=== PATIENT | female | born 1940 | race Caucasian/White ===

== ENCOUNTER 2016-04-21 17:46 | Inpatient (IN) | payer OTHER, BC ==
--- NOTE | 2016-04-21 18:03 | CPEKG ---
Heart Rate: 75 RR Interval: 800 P-R Interval: 202 QRSD Interval: 190 QT Interval: 460 QTC Interval: 514 P [place]: 0 QRS [place]: -78 T Wave [place]: 91 EKG Severity - ABNORMAL ECG - EKG Impression: VENTRICULAR-PACED RHYTHM Electronically Signed By: Ceci Neal 21-Apr-2016 21:18:01
[2016-04-21 18:53] LABS: ANION GAP 10 mEq/L (8-16); CALCIUM 8.9 mg/dL (8.5-10.4); CARBON DIOXIDE 28 mEq/l (22-31); CHLORIDE 87 mEq/L (97-110); CREATININE 0.8 mg/dL (0.6-1.0); GLOMERULAR FILTRATION RATE > 60; GLUCOSE 97 mg/dL (70-100); POTASSIUM 4.2 mEq/L (3.5-5.2); SODIUM 125 mEq/L (134-144)
--- NOTE | 2016-04-21 18:56 | EDPHY ---
H & P Time Seen by Provider: 04/21/16 18:00 HPI/ROS: CHIEF COMPLAINT: Ankle swelling HISTORY OF PRESENT ILLNESS: This is a 75-year-old female referred to the emergency department by her physicians are office, where she was seen yesterday. [place] [address] and a sodium of 120. Because of these laboratory results she was contacted today and advised come to the emergency department. She denies chest pain, shortness of breath, PND, TOMPKINS. She has had persistent lower extremity edema (for at least 2 weeks) and was given a prescription for diuretic yesterday; which she has not filled or taken. She does report fatigue. REVIEW OF SYSTEMS: A ten point review of systems was performed and is negative with the exception of the items mentioned in the HPI. Past Medical/Surgical History: 1. Hypertension 2. Sick sinus syndrome status post pacemaker placement 3. Peripheral neuropathy 4. Recent I & D of knee abscess (January 2016) 5. Lower extremity cellulitis (requiring IV antibiotics in January of 2016) 6. Hip surgery Social History: She lives independently. 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 She does not use tobacco products. She drinks alcohol socially. She is accompanied by her 2 daughters today. Smoking Status: Former smoker Physical Exam: General Appearance: Alert. Vital signs reviewed. Blood pressure 160/132. Heart rate 78, respiratory rate 15, oxygen saturation 96% on room air. Temperature 36.7. Eyes: Pupils equal and round, no conjunctival injection, no discharge. Anicteric. ENT, Mouth: Mucous membranes are moist, no oropharyngeal erythema or edema. Neck: No lymphadenopathy, supple. No jugular venous distention. Respiratory: Lungs with distant breath sounds; no wheezes, rales, or rhonchi. Cardiovascular: Regular rate and rhythm; no murmur, rub, or gallop. Gastrointestinal: Abdomen is soft and nontender, no masses or organomegaly, bowel sounds normal. Skin: Warm and dry, no rashes on exposed skin, normal color. Back: Nontender to palpation over the thoracolumbar spine. No CVAT. Extremities: Bilateral 3+ pitting lower extremity edema to the knees. Bandages on both heels. Neurological: Alert and oriented. Moving all four extremities easily and equally. Psychiatric: Normal affect. Constitutional: Initial Vital Signs Temperature (C) 36.7 C 04/21/16 17:48 Blood Pressure 160/132 H 04/21/16 17:48 O2 Delivery Mode Room Air Allergies/Adverse Reactions: morphine [Morphine] Allergy (Mild, Verified 02/12/16 14:36) VOMITTING Home Medications: Medication Instructions Recorded DULoxetine [Cymbalta 30 MG (*)] 30 mg PO HS 04/01/15 Diazepam [Valium 5 MG (*)] 5 mg PO HS PRN 04/01/15 Irbesartan [Avapro 300 mg] 300 mg PO DAILY 04/01/15 Ferrous Sulfate [Ferrous Sulf 325 325 mg PO DAILY #0 tab 04/05/15 MG (*)] Gabapentin [Neurontin 300 MG (*)] 300 mg PO Q8 02/12/16 Furosemide [Furosemide] 20 mg PO DAILY 04/21/16 Metoprolol Tartrate [Metoprolol 50 mg PO BID 04/21/16 Tartrate] Multivitamins [Multivitamin (*)] 1 each PO DAILY 04/21/16 Potassium Cl [Klor-Con] 10 meq PO DAILY 04/21/16 Vit A/Vit C/Vit E/Zinc/Copper 1 each PO DAILY 04/21/16 [Preservision Areds Softgel] Medical Decision Making - Diagnostics EKG Interpretation: 12 lead EKG is interpreted in Trace master View by emergency department physician. Paced rhythm. Imaging: Two-view chest x-ray reviewed by me in PACs. It shows cardiomegaly and signs of congestive heart failure. ED Course/Re-evaluation: Basic metabolic panel being repeated to reassess sodium. Repeat sodium is 125. Troponin is normal. Chest x-ray shows signs of congestive heart failure. Yesterday's BNP was over 9000. These findings in conjunction with her lower extremity edema support a diagnosis of congestive heart failure. She did not start the diuretic that was prescribed yesterday. She is not having chest pain or shortness of breath tonight. She is hypertensive with a blood pressure 160/110. She is reportedly compliant with her antihypertensives. New onset CHF. She was given Lasix in the emergency department. I have spoken with Dr. Ayleen Montana of Cardiology and the Cardiology service will see this patient in the morning. Her urine also looks as if she has a urinary tract infection. Culture has been sent. She was given 1 dose of Keflex 500 mg orally in the department. She is not febrile or ill-appearing. She does not meet SIRS criteria. Differential Diagnosis: I considered a differential diagnosis including but not limited to pulmonary infectious process, pulmonary embolus, acute coronary syndrome, and congestive heart failure. - Data Points Laboratory Results: Laboratory Results 04/21/16 18:20 04/21/16 04/21/16 18:32 18:20 Sodium 125 L mEq/L (134-144) Potassium 4.2 mEq/L (3.5-5.2) Chloride 87 L mEq/L (97-110) Carbon Dioxide 28 mEq/l (22-31) Anion Gap 10 mEq/L (8-16) BUN 17 mg/dL (7-23) Creatinine 0.8 mg/dL (0.6-1.0) Estimated GFR > 60 Glucose 97 mg/dL (70-100) Calcium 8.9 mg/dL (8.5-10.4) Troponin I < 0.012 ng/mL (0-0.034) Urine Color YELLOW Urine Appearance MODERATELY TURBID Urine pH 6.0 (5.0-7.5) Ur Specific [place] 1.005 (1.002-1.030) Urine Protein 1+ H (NEGATIVE) Urine Ketones NEGATIVE (NEGATIVE) Urine Blood 3+ H (NEGATIVE) Urine Nitrate NEGATIVE (NEGATIVE) Urine Bilirubin NEGATIVE (NEGATIVE) Urine Urobilinogen NEGATIVE EU (0.2-1.0) Ur Leukocyte Esterase 3+ H (NEGATIVE) Urine RBC 25-50 H /hpf (0-3) Urine WBC 50-182 H /hpf (0-3) Ur Epithelial Cells TRACE /lpf (NONE-1+) Urine Bacteria 3+ H /hpf (NONE SEEN) Ur Culture Indicated? INDICATED H (NI) Urine Glucose NEGATIVE (NEGATIVE) Medications Given: Discontinued Medications Furosemide (Lasix Injection) 20 mg IVP EDNOW ONE Stop: 04/21/16 20:02 Last Admin: 04/21/16 20:11 Dose: 20 mg Departure - Departure Disposition: [facility] Clinical Impression: Hyponatremia Congestive heart failure Qualifiers: Qualifier Code: (I50.9) Heart failure, unspecified Condition: Good
[2016-04-21 18:57] LABS: COLOR YELLOW; LEUKOCYTE ESTERASE,URINE 3+ (NEGATIVE); NITRITE,URINE NEGATIVE (NEGATIVE)
[2016-04-21 19:05] LABS: TROPONIN I < 0.012 ng/mL (0-0.034)
[2016-04-21 19:07] LABS: BACTERIA 3+ /hpf (NONE SEEN); RBC,URINE 25-50 /hpf (0-3); WBC,URINE 50-182 /hpf (0-3)
--- NOTE | 2016-04-21 19:20 | DX ---
AP Upright and Lateral Chest History: Chest pain in a 75-year-old female; comparison prior study April 01, 2015. Findings: The heart is enlarged and there is pulmonary venous hypertension. Small bilateral pleural e ffusions are seen. Basilar opacities are consistent with atelectasis. The bipolar pacer is in stable position. Degenerative changes are noted in the spine. An element of COPD is suspected based on sherman ening of the hemidiaphragms. Rods and pedicle screws are seen in the lumbar spine. There is a compression fracture of L1 which wa s noted on the lumbar spine study July 03, 2015. Impression: 1. Congestive heart failure. 2. See above report for additional findings.
[2016-04-21] MEDS ORDERED: ACETAMINOPHEN 325 MG TAB PO PRN (19:40)
[2016-04-21] MEDS ORDERED: FUROSEMIDE 20 MG/2 ML VIAL IVP ONE (20:01)
[2016-04-21] MEDS ORDERED: FUROSEMIDE 20 MG/2 ML VIAL ONE (20:02)
--- NOTE | 2016-04-21 20:05 | PDGENHP ---
History and Physical - Chief Complaint Acute edema - History of Present Illness PCP: Dr. Franco Dumpster Operator: Dr. Prasad HPI: 75-year-old female presents with acute edema located in her bilateral lower extremities, right greater than left, with associated wheezing and lower extremity discomfort. Patient reports onset of symptoms 10 days ago and duration has been persistent and worsening thereafter. Edema is slightly alleviated in her left lower extremity by elevating it, exacerbated by sitting in a chair. She denies any overt chest pain or shortness of breath. She reports that she has recently been engaging in a low-salt low-fat diet with her family. She denies any recent changes in her urine output, denies any changes in her medications. She suffers from chronic back neuropathy and difficulty sensing her bilateral feet and this has now progressed to her bilateral hands. Her feet and hands both contain a purplish hue and they also have some lesions. History Information - Allergies/Home Medication List Allergies/Adverse Reactions: morphine [Morphine] Allergy (Mild, Verified 02/12/16 14:36) VOMITTING Home Medications: DULoxetine [Cymbalta 30 MG (*)] 30 mg PO DAILY 04/01/15 [Last Taken 02/12/16] Diazepam [Valium 5 MG (*)] 5 mg PO HS PRN 04/01/15 [Last Taken 02/11/16] Irbesartan [Avapro 300 mg] 300 mg PO DAILY 04/01/15 [Last Taken 02/12/16] Gabapentin [Neurontin 300 MG (*)] 300 mg PO Q8 02/12/16 [Last Taken 02/12/16] Hyoscyamine Sulfate [Levsin, Hyomax-Sl 0.125 mg (*)] 0.125 mg PO TID 02/12/16 [ Last Taken Unknown] I have personally reviewed and updated: family history, medical history, social history, surgical history - Past Medical History hypertension Additional medical history: Sick sinus syndrome. Cellulitis. Peripheral vascular disease. Neuropathy. Moderate aortic stenosis - Surgical History Additional surgical history: Permanent pacemaker. Hip surgery - Family History Additional family history: Mother with CHF at age 75, no history of venous thromboembolism - Social History Smoking Status: Former smoker Alcohol Use: Occasionally (Not heavy, no history of alcohol withdrawal) Drug Use: None Additional social history: Fairly sedentary, independent in her ADLs Review of Systems ROS: 10pt was reviewed & negative except for what was stated in HPI & below Cardiac: Reports: edema, other Respiratory: Reports: wheezing Neurological: Reports: other (Neuropathy) Physical Exam Temp Pulse Resp BP Pulse Ox 36.7 C 78 15 161/111 H 96 04/21/16 17:48 04/21/16 18:00 04/21/16 18:00 04/21/16 18:00 04/21/16 18:00 Constitutional: no apparent distress, appears nourished, not in pain, obese Eyes: PERRL, anicteric sclera, EOMI Ears, Nose, Mouth, Throat: moist mucous membranes, hearing normal, ears appear normal, no oral mucosal ulcers Cardiovascular: regular rate and rhythym, no murmur, rub, or gallop, JVD, edema (2+ lower extremity right lower extremity, 1+ in the left lower extremity), other (2+ pulses dorsalis pedis and radialis bilateral) Respiratory: inspiratory crackles (Bilaterally posteriorly), No reduced air movement, No expiratory wheeze, No bronchial breath sounds Gastrointestinal: normoactive bowel sounds, soft, non-tender abdomen, no palpable masses Skin: other (Purplish hue to the bilateral fingers and toes with a splitting of the skin on the bilateral thumbs as well as the distal toes and pressure injury on her bilateral heels) Neurologic: AAOx3, No sensation intact bilaterally (Impaired in the bilateral distal extremities), No weakness (Motor strength is 5/5 bilateral upper and lower extremity) Psychiatric: interacting appropriately, not anxious, not encephalopathic, thought process linear Lab Data & Imaging Review 04/21/16 18:20 Sodium 125 mEq/L (134-144) L 04/21/16 18:20 Potassium 4.2 mEq/L (3.5-5.2) 04/21/16 18:20 Chloride 87 mEq/L (97-110) L 04/21/16 18:20 Carbon Dioxide 28 mEq/l (22-31) 04/21/16 18:20 Anion Gap 10 mEq/L (8-16) 04/21/16 18:20 BUN 17 mg/dL (7-23) 04/21/16 18:20 Creatinine 0.8 mg/dL (0.6-1.0) 04/21/16 18:20 Estimated GFR > 60 04/21/16 18:20 Glucose 97 mg/dL (70-100) 04/21/16 18:20 Calcium 8.9 mg/dL (8.5-10.4) 04/21/16 18:20 Troponin I < 0.012 ng/mL (0-0.034) 04/21/16 18:20 Urine Color YELLOW 04/21/16 18:32 Urine Appearance MODERATELY TURBID 04/21/16 18:32 Urine pH 6.0 (5.0-7.5) 04/21/16 18:32 Ur Specific [place] 1.005 (1.002-1.030) 04/21/16 18:32 Urine Protein 1+ (NEGATIVE) H 04/21/16 18:32 Urine Ketones NEGATIVE (NEGATIVE) 04/21/16 18:32 Urine Blood 3+ (NEGATIVE) H 04/21/16 18:32 Urine Nitrate NEGATIVE (NEGATIVE) 04/21/16 18:32 Urine Bilirubin NEGATIVE (NEGATIVE) 04/21/16 18:32 Urine Urobilinogen NEGATIVE EU (0.2-1.0) 04/21/16 18:32 Ur Leukocyte Esterase 3+ (NEGATIVE) H 04/21/16 18:32 Urine RBC 25-50 /hpf (0-3) H 04/21/16 18:32 Urine WBC 50-182 /hpf (0-3) H 04/21/16 18:32 Ur Epithelial Cells TRACE /lpf (NONE-1+) 04/21/16 18:32 Urine Bacteria 3+ /hpf (NONE SEEN) H 04/21/16 18:32 Ur Culture Indicated? INDICATED (NI) H 04/21/16 18:32 Urine Glucose NEGATIVE (NEGATIVE) 04/21/16 18:32 Chest X-Ray results: other (Bilateral fluffy infiltrates with bilateral effusions) Visualized and Interpreted EKG results: Yes EKG Interpretation: Positive for: other (V paced) Assessment & Plan Assessment: 75-year-old female presents with acute bilateral lower extremity edema concerning for acute CHF exacerbation Plan: 1. Lower extremity edema. Acute, new problem this provider, further workup indicated. Most likely secondary to acute CHF but DVT has not been ruled out -get lower extremity ultrasound now -initiate Lasix 2. Acute CHF exacerbation. New problem this provider, further workup indicated. Unclear whether this is systolic or diastolic dysfunction, no previous history of CHF -get echocardiogram -outside records reviewed including TSH level 6.2 from 04/20/2016 -I discussed with Dr. Ceci Neal, we both agree the patient is safe for the EACU and Dr. Neal states that cardiology has been contacted and will consult in a.m. -give 20 mg of IV Lasix now, continue at 20 mg IV twice daily -continue to monitor potassium and magnesium -continue to monitor on telemetry 3. Hyponatremia. Acute, most likely secondary to renal hypoperfusion in the setting of acute CHF -give IV Lasix and recheck serum sodium level in a.m. 4. Neuropathy. Unclear etiology, patient reports that she has previously been worked up for Raynaud's phenomena and she has been told that she does not in fact have Raynaud's -suspect the patient may have a capillary small vessel pathology given that her large vessels are palpably patent -recommend outpatient evaluation and management through the cardiology office and consideration of calcium channel emery if appropriate Diet. Cardiac diet Prophylaxis. High risk patient, Lovenox 40 Code status. Full Disposition. Anticipated discharge is 04/22/2016, pending further workup and treatment as outlined above.
[2016-04-21] MEDS ORDERED: CEPHALEXIN 500 MG CAP PO ONE (20:17)
--- NOTE | 2016-04-21 21:01 | US ---
Ultrasound Venous Doppler Study of Lower Extremities Bilaterally History: Bilateral leg swelling .Evaluate for deep vein thrombosis. Technique: High frequency transducer was used for imaging and Doppler study of the veins of the lowe r extremities bilaterally. Pulsed Doppler and color Doppler were utilized, along with various maneuve rs to assess flow in the veins. Findings: The deep veins of the lower extremities are normally compressible between the groin and th e upper calf and have normal Doppler waveforms within them. No venous thrombosis is identified in ei ther lower extremity. Lower extremity edema is seen bilaterally. The peroneal veins are not seen involving either leg. Impression: No evidence of deep vein thrombosis in either lower extremity.
[2016-04-21] MEDS: DIAZEPAM 5 MG TAB PO PRN (22:18)
[2016-04-21] MEDS: DULoxetine 30 MG CAP PO SCH (22:18)
[2016-04-21] MEDS: METOPROLOL TARTRATE 50 MG TAB PO SCH (22:18)
[2016-04-21] MEDS: GABAPENTIN 300 MG CAP PO SCH (22:19)
[2016-04-21] MEDS ORDERED: TROLAMINE SALICYLATE 85 GM CRTUBE TP PRN (23:23)
[2016-04-22 05:06] LABS: % IMMATURE GRANULYOCYTES 0.2 % (0.0-1.1); ABSOLUTE IMMATURE GRANULOCYTES 0.01 10^3/uL (0.00-0.10); ADD DIFF? NO; ADD MORPH? NO; ADD SCAN? NO; ATYPICAL LYMPHOCYTE FLAG 0 (0-99); FRAGMENT RBC FLAG 0 (0-99); HEMATOCRIT 33.8 % (38.0-47.0); HEMOGLOBIN 11.8 g/dL (12.6-16.3); LEFT SHIFT FLG 0 (0-99); LIPEMIA HEMOLYSIS FLAG 90 (0-99); MEAN CELL HEMOGLOBIN 31.6 pg (27.9-34.1); MEAN CELL HEMOGLOBIN CONCENTR. 34.9 g/dL (32.4-36.7); MEAN CELL VOLUME 90.6 fL (81.5-99.8); MEAN PLATELET VOLUME 8.8 fL (8.7-11.7); PLATELET CLUMPS FLAG 10 (0-99); PLATELET COUNT 186 10^3/uL (150-400); RED BLOOD CELL COUNT 3.73 10^6/uL (4.18-5.33); RED CELL DISTRIBUTION WIDTH 14.9 % (11.5-15.2)
[2016-04-22 05:22] LABS: ANION GAP 4 mEq/L (8-16); CALCIUM 8.2 mg/dL (8.5-10.4); CARBON DIOXIDE 26 mEq/l (22-31); CHLORIDE 96 mEq/L (97-110); CREATININE 0.7 mg/dL (0.6-1.0); GLOMERULAR FILTRATION RATE > 60; GLUCOSE 93 mg/dL (70-100); MAGNESIUM 1.4 mg/dL (1.6-2.3); POTASSIUM 4.2 mEq/L (3.5-5.2); SODIUM 126 mEq/L (134-144)
[2016-04-22] MEDS: GABAPENTIN 300 MG CAP PO SCH ×3 (07:19→21:11)
[2016-04-22] MEDS: METOPROLOL TARTRATE 50 MG TAB PO SCH ×2 (08:00→21:11)
[2016-04-22] MEDS: FUROSEMIDE 20 MG/2 ML VIAL IVP SCH ×2 (08:00→15:03)
[2016-04-22] MEDS: PRESERVISION AREDS2 FORMULA EYE VIT 1 EACH PO SCH (08:00)
[2016-04-22] MEDS: ENOXAPARIN 40 MG/0.4 ML SYR SC SCH (08:00)
[2016-04-22] MEDS: FERROUS SULFATE 325 MG TAB PO SCH (08:00)
[2016-04-22] MEDS: IRBESARTAN 150 MG TAB PO SCH (08:01)
[2016-04-22] MEDS: MULTIVITAMINS 1 EACH TAB PO SCH (08:01)
[2016-04-22] MEDS: POTASSIUM CL 10 MEQ TAB PO SCH (08:01)
--- NOTE | 2016-04-22 10:27 | HOSPPROG ---
Hospitalist Progress Note Assessment/Plan: DIAGNOSIS: # ACUTE CONGESTIVE HEART FAILURE, PRIMARILY RIGHT-SIDED, QUESTION NEW ONSET # HYPONATREMIA, SUSPECT DELUSIONAL FROM HEART FAILURE # UNCONTROLLED SYSTEMIC HYPERTENSION WHICH MAY BE AGGRAVATING HER CURRENT CARDIAC SITUATION. # MULTIPLE CHRONIC OPEN WOUNDS ON HER FEET AND TOES, CURRENTLY OPEN PRESENT ON ADMISSION, NO DEFINITE SIGN OF INFECTION AT THIS POINT # PYURIA OF UNCERTAIN SIGNIFICANCE BUT WITH PRESENCE OF LEUKOCYTE ESTERASE AND BACTERIA # PACEMAKER IN PLACE WITH APPROPRIATE ACTIVE PACING, HISTORY SICK SINUS SYNDROME # MITRAL STENOSIS, KNOWN MODERATE AORTIC STENOSIS, TRICUSPID REGURG # SEVERE PULMONARY HYPERTENSION. 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 Ayleen Montana who will be seeing the patient today -echocardiogram today is pending and will compare that with her outpatient echoes which are all in the clinic -Dr. Montana will review the record to see if there has been other significant cardiac evaluation including coronary evaluations are otherwise -Continue IV diuresis at this time -will want to review prior records regarding the nature of the diagnosis of peripheral vascular disease. If indeed she does have significant peripheral vascular disease she may be at high risk for coronary disease and unless this has been recently evaluated probably would warrant reassessment at this time. -Follow sodium and magnesium closely -will begin more extensive antihypertensive treatment -will further review urinary symptoms with patient and wait on urinary culture SUBJECTIVE: So far little change in symptoms overnight Has had excellent diuresis so far OBJECTIVE Vitals reviewed: With uncontrolled systolic and diastolic hypertension persist ; otherwise stable vitals without fever Exam: alert oriented skin warm dry hands and feet remain severely cyanotic which is chronic for her and at her baseline currently resps not labored lungs clear BSs heart regular, systolic murmur is present abd soft nondistended nontender, bowel sounds present limbs warm, still with pitting edema iv site ok Laboratory data: Urine culture pending Sodium minimally increased at 126, magnesium a bit low at 1.4 I reviewed her chest x-ray from last night which in my interpretation shows a very enlarged left ventricle and right atrium as well as some mild pulmonary edema with no effusions I was present during part of her echocardiogram which was demonstrating pulmonary hypertension probably in the mid upper 60s, with some mitral stenosis and aortic stenosis as well as tricuspid regurgitation ejection fraction approximately 55%, some diastolic dysfunction was noted. This is not an official at this time. Objective: Vital Signs Temp Pulse Resp BP Pulse Ox 36.4 C 75 16 154/109 H 97 04/22/16 04:40 04/22/16 07:20 04/22/16 07:20 04/22/16 07:20 04/22/16 08:36 Laboratory Results 04/22/16 04:30 04/22/16 04:30 04/21/16 04/22/16 04/23/16 06:59 06:59 06:59 Intake Total 310 100 Output Total 1350 1900 Balance -1040 -1800 ICD10 Worksheet Patient Problems: Problems Problem Status Diagnosed Congestive heart failure Acute Hyponatremia Acute Cellulitis Acute Cellulitis of leg, right Acute Left lower lobe pneumonia Acute Osteoarthritis of right hip Acute
[2016-04-22] MEDS ORDERED: MAGNESIUM SULF 2 GM/WATER 50 ML IV PRN (10:28)
[2016-04-22] MEDS ORDERED: MAGNESIUM SULF 1 GM/DEXTROSE 100 ML IV PRN (10:28)
[2016-04-22] MEDS ORDERED: LISINOPRIL 10 MG TAB PO SCH (11:00)
--- NOTE | 2016-04-22 11:17 | ECHO ---
[id number] + + [address] : : [place] [address] : : [phone] + + Adult Echocardiographic Report + ----+ :Name: MEHDI SIERRA Date: 04/22/2016 09:00 AM BP: 154/109 mmHg : : Hospital Admission Number: [id number] Location: 144: :: 1940 Gender: Female Height: 67 in : :Age: 75 yrs Race: WH Weight: 185 lb : :Reason For Study: eval for new CHF : : BSA: 2.0 meters2 : :History: evaluate new CHF : + ----+ MMode/2D Measurements & Calculations IVSd: 1.4 cm RVDd: 4.2 cm FS: 30.8 % MVA(traced): LVPWd: 1.3 cm LVIDd: 4.8 cm EDV(Teich): 105.3 ml 1.5 cm2 LVIDs: 3.3 cm ESV(Teich): 44.0 ml EF(Teich): 58.3 % Ao root diam: LVOT diam: 1.9 cmLVLd ap4: 8.3 cm SV(MOD-sp4): 3.1 cm LVOT area: EDV(MOD-sp4): 57.0 ml LA dimension: 2.7 cm2 111.0 ml 4.6 cm LVLs ap4: 7.4 cm ESV(MOD-sp4): 54.0 ml EF(MOD-sp4): 51.4 % Normal Measurement Values: + + :LVIDd (3.5-5.7cm) IVSd (0.6-1.1cm) LVPWd (0.6-1.1cm) Aortic Root (2.0-3.7cm)Left Atrium (1.5-4.0cm): :LV Vol(d) (76-115ml) LV Vol(s) (29-48ml) Ejec Fraction (50-65%)PV Soule[place]ane (0.6- 1.2m/s) TV Soule[place]ane (0.4-1.0m/s) : :MV E Souleymane (0.8-1.0m/s)MV A [place] (0.3-1.0m/s)LVOT Sou[place]ane (0.7-1.2m/s) Asc Ao Souleymane ( 0.9-1.8m/s) : + + Doppler Measurements & Calculations MV V2 mean: MV P1/2t max souleymane: Ao V2 max: AI max souleymane: 114.7 cm/sec 191.1 cm/sec 191.5 cm/sec 419.1 cm/sec MV mean PG: MV P1/2t: 80.1 msec Ao max PG: AI max P.1 mmHg MVA(P1/2t): 2.7 cm2 14.7 mmHg 70.3 mmHg MV V2 VTI: MV dec slope: Ao mean PG: AI dec slope: 39.1 cm 12.2 mmHg 244.7 cm/sec2 MVA(VTI): 1.4 cm2 699.0 cm/sec2 Ao V2 mean: AI P1/2t: 160.8 cm/sec 501.8 msec Ao V2 VTI: 43.0 cm MUKUND(I,D): 1.3 cm2 MUKUND(V,D): 1.4 cm2 LV V1 max: SV(LVOT): 55.0 ml PA V2 max: TR max souleymane: 100.4 cm/sec 107.6 cm/sec 363.5 cm/sec LV V1 max PG: PA max PG: TR max P.0 mmHg 4.6 mmHg 52.8 mmHg LV V1 mean PG: RAP systole: 2.1 mmHg 15.0 mmHg LV V1 mean: RVSP(TR): 67.8 mmHg 67.7 cm/sec LV V1 VTI: 20.0 cm Left Ventricle The left ventricle is normal in size. There is moderate concentric left ventricular hypertrophy. Diastolic Function Indeterminate due to mitral stenosis.. Left ventricular systolic function is low normal. Ejection Fraction = 52%. Abnormal septal motion due most likely to pacemaker. Right Ventricle The right ventricle is moderately dilated. There is a pacemaker lead in the right ventricle. The right ventricular systolic function is mildly reduced. Atria The Left Atrial Volume is 64 ml/m2. The left atrium is severely dilated. The right atrium is mild to moderately dilated. A dilated inferior vena cava suggests increased right atrial pressure. The lack of respiratory variation in the inferior vena cava diameter is noted. Mitral Valve Moderate to severe mitral annular calcification with restricted posterior leaflet mobility. There is moderate mitral stenosis. There is moderate mitral regurgitation. Tricuspid Valve The tricuspid valve is normal in structure and function. There is no tricuspid stenosis. There is severe tricuspid regurgitation. Right ventricular systolic pressure is 68mmHg. There is Doppler evidence for moderate to severe pulmonary hypertension. Aortic Valve The aortic valve is trileaflet. Mild Aortic Valve Calcification. Mild valvular aortic stenosis. Mild aortic regurgitation. Pulmonic Valve The pulmonic valve is not well visualized. Mild pulmonic valvular regurgitation. Great Vessels The aortic root is normal size. Pericardium/Pleural There is no pericardial effusion. There is a moderate pleural effusion. Conclusion A two-dimensional transthoracic echocardiogram with M-mode and Doppler was performed. There is moderate concentric left ventricular hypertrophy. Left ventricular systolic function is low normal. Ejection Fraction = 52%. Abnormal septal motion due to pacing The right ventricular systolic function is mildly reduced. The right ventricle is moderately dilated. There is a pacemaker lead in the right ventricle. The left atrium is severely dilated. The right atrium is mild to moderately dilated. A dilated inferior vena cava suggests increased right atrial pressure. Moderate to severe mitral annular calcification with restricted posterior leaflet mobility. There is moderate mitral regurgitation. Moderate mitral stenosis There is severe tricuspid regurgitation. Right ventricular systolic pressure is 68mmHg. There is Doppler evidence for moderate to severe pulmonary hypertension. Mild Aortic Valve Calcification Mild valvular aortic stenosis. Mild aortic regurgitation. Mild pulmonic valvular regurgitation. There is a moderate pleural effusion. Final Reading Physician: Dr Ayleen Montana electronically signed on 04/22/2016 11:16 AM Ordering Physician: García Alvarado Performed By: Amaya Love
[2016-04-22] MEDS: amLODIPine BESYLATE 5 MG TAB PO SCH (15:03)
--- NOTE | 2016-04-22 15:46 | GCON ---
[f rep st] CONSULTATION CARDIOLOGY CONSULT DATE OF CONSULTATION: 04/22/2016 CHIEF COMPLAINT: Lower extremity edema. HISTORY OF PRESENT ILLNESS: We were asked by Dr. Motta to visit with the patient. The patient is a 75-year-old female followed by Dr. Prasad in the outpatient setting. She has valvular heart disease (moderate mitral regurgitation and moderate mitral stenosis, severe TR, mild aortic stenosis and mil d aortic regurgitation). She also has pulmonary hypertension, pacemaker with brief episodes of AFib as well as VT seen on the pacer, and hypertension. She was last seen in our clinic in October 2015. She presented to Dr. Resendiz' office 2 days ago with progressive lower extremity edema over the past cou ple of weeks. Otherwise, the patient denies chest pain, dyspnea, presyncope, or syncope. She has no t had palpitations. She did have some outpatient labs notable for a sodium of 120 and a markedly alessandro vated BNP. Therefore, she was sent to the ER for admission and further evaluation and management. REVIEW OF SYSTEMS: A full 10-point review of systems was performed and is negative except that which is outlined above. ALLERGIES: Morphine. PAST MEDICAL HISTORY: 1. Valvular heart disease, as detailed above. 2. Sick sinus syndrome with [place] pacemaker. She has had brief episodes of atrial fibrillation as well as nonsustained VT seen on the pacemaker check. 3. Pulmonary hypertension. 4. Hypertension. 5. Hospitalization in January for cellulitis. 6. Anemia. 7. Impaired fasting glucose. 8. Peripheral neuropathy. SURGICAL HISTORY: Lumbar spinal fusion, right hip replacement, ovarian surgery. SOCIAL HISTORY: The patient is a former cigarette smoker. She does drink alcohol in moderation. Sh igor is . She volunteers at the [employer]. FAMILY HISTORY: Not applicable to the current case. PHYSICAL EXAM: VITAL SIGNS: Blood pressure on admission was 160/132 and it is currently 148/89. He art rate is 75, oxygen saturation 92% on room air. She has been afebrile. GENERAL: Well-appearing o lder female in no acute distress. HEENT: Sclerae are clear and free of jaundice. Mucous membranes are moist. CARDIOVASCULAR: JVP is approximately 14-16 cm of water. Carotids equal and 2+ bilateral ly without bruit. HEART: Regular rate and rhythm with a 2/6 early peaking systolic ejection murmur at the base. Holosystolic murmur at the apex and soft early diastolic murmur at the apex. No gallop . No rub. LUNGS: Bibasilar rales without wheezes or rhonchi. ABDOMEN: Obese, soft, nontender, an d nondistended without bruits, masses, or hepatosplenomegaly. EXTREMITIES: Warm and well perfused. She has diffuse onychomycosis. She has mild pitting edema to the mid shins bilaterally. Stigmata o f chronic venous stasis, most notable on the left. NEURO: Alert and oriented x3 without gross focal neurological deficits. LABORATORY DATA: White count 5.3, hematocrit 33.8, platelets 186. Sodium 126, potassium 4.2, chlori de 96, BUN 16, creatinine 0.7. Magnesium 1.4 and this has been repeated. Troponin negative x1. BNP is pending. BNP was 9230 on April 20. AST elevated at 91 on April 20. ALT and alk phos no rmal on that day. Total bilirubin normal. TSH 6.16. Urinalysis: 1+ protein, 3+ blood, 3+ leukocyt e esterase, 25-50 red cells, 50-182 white cells. Urine culture is pending. EKG reviewed by me shows ventricular pacing. Unclear underlying rhythm. I do not see definitive P w aves. Chest x-ray reviewed by me: Congestive heart failure with small bilateral pleural effusions. Echocardiogram reviewed by me: Moderate concentric LVH, low normal ejection fraction at 52%. Abnorm al septal motion due to pacing. Right ventricular systolic function is mildly reduced. The right ve ntricle is moderately dilated. Biatrial dilation. Moderate to severe mitral annular calcification w ith moderate mitral stenosis and moderate mitral regurgitation. Severe tricuspid regurgitation with estimated pulmonary pressure at 68. Mild aortic stenosis and mild aortic regurgitation. Lower extremity ultrasound: Bilateral lower extremity ultrasound is negative for DVT. She did have a Lexiscan nuclear stress test in our office in March 2015 which was normal. ASSESSMENT AND PLAN: A 75-year-old female with valvular heart disease, sick sinus syndrome with pace maker, hypertension, pulmonary hypertension, admitted with new onset heart failure. This is left-linda ed diastolic heart failure and right heart failure. Previous echocardiograms were not suggestive of the degree of pulmonary hypertension she has now. She now has pulmonary hypertension, which was not noted on her echo from March 2014. Also since that time, her valvular disease has progressed. 1. Heart failure: Acute diastolic heart failure and right heart failure, in part related to valvula r heart disease as well as suboptimally controlled hypertension. I wonder if she may be in underlyin g atrial fibrillation which could have tipped her into some heart failure. Pulmonary hypertension is now present, causing right heart failure. The differential diagnosis for the etiology of her pulmon jayme hypertension includes sleep apnea, chronic thromboembolic disease, connective tissue disease. I favor a combination of sleep apnea and obesity hypoventilation syndrome causing her pulmonary hyperte nsion. Agree with intravenous Lasix for diuresis and blood pressure management. Her troponin is neg ative. She had a normal nuclear stress test about a year ago. I do not see a need for repeat nuclea r stress test at the present time, especially as she has not had angina. 2. Pulmonary hypertension: This is a new finding. Possible etiologies as mentioned per #1. Would consider outpatient sleep medicine evaluation when she is euvolemic. 3. Pacemaker with history of brief episodes of paroxysmal atrial fibrillation as well as brief episo keli of nonsustained VT. She has not had palpitations. She has previously been seen by EP, and her a rrhythmias were so brief that it was felt she did not require systemic anticoagulation. We will put her on aspirin here. I have asked [facility] to interrogate her device to see if she is in underlyin g atrial fibrillation, which may have tipped her into some diastolic heart failure. 4. Valvular heart disease: Rate control and volume management are important in the setting of her m itral valve disease. Diuresis may also improve the degree of her tricuspid regurgitation. She will require serial echo surveillance. 5. Hypertension: Hopefully this will improve with diuresis. 6. I will up titrate her lisinopril. We may need to up titrate her metoprolol. Thank you for allowing us to assist in the care of this patient. We will follow with you. /[id number]/MODL
[2016-04-22] MEDS ORDERED: CEPHALEXIN 500 MG CAP PO ONE (20:11)
[2016-04-22] MEDS: DULoxetine 30 MG CAP PO SCH (21:11)
[2016-04-22] MEDS: DIAZEPAM 5 MG TAB PO PRN (21:16)
[2016-04-23 04:49] LABS: ANION GAP 4 mEq/L (8-16); CALCIUM 8.3 mg/dL (8.5-10.4); CARBON DIOXIDE 31 mEq/l (22-31); CHLORIDE 92 mEq/L (97-110); CREATININE 0.7 mg/dL (0.6-1.0); GLOMERULAR FILTRATION RATE > 60; GLUCOSE 94 mg/dL (70-100); MAGNESIUM 1.4 mg/dL (1.6-2.3); POTASSIUM 3.8 mEq/L (3.5-5.2); SODIUM 127 mEq/L (134-144)
[2016-04-23] MEDS: GABAPENTIN 300 MG CAP PO SCH ×3 (05:29→21:15)
[2016-04-23] MEDS ORDERED: LISINOPRIL 20 MG TAB PO SCH (09:00)
[2016-04-23] MEDS: PRESERVISION AREDS2 FORMULA EYE VIT 1 EACH PO SCH (09:28)
[2016-04-23] MEDS: POTASSIUM CL 10 MEQ TAB PO SCH (09:29)
[2016-04-23] MEDS: METOPROLOL TARTRATE 50 MG TAB PO SCH ×2 (09:29→21:16)
[2016-04-23] MEDS: IRBESARTAN 150 MG TAB PO SCH (09:29)
[2016-04-23] MEDS: MULTIVITAMINS 1 EACH TAB PO SCH (09:29)
[2016-04-23] MEDS: FERROUS SULFATE 325 MG TAB PO SCH (09:29)
[2016-04-23] MEDS: ENOXAPARIN 40 MG/0.4 ML SYR SC SCH (09:29)
[2016-04-23] MEDS: amLODIPine BESYLATE 5 MG TAB PO SCH (09:30)
[2016-04-23] MEDS: FUROSEMIDE 20 MG/2 ML VIAL IVP SCH ×2 (09:30→13:36)
--- NOTE | 2016-04-23 10:37 | PDCARPN ---
Cardiology Progress Note Chief Complaint: biventricular failure Assessment/Plan: Assessment: 75-y/o F with VHD (mod MS/MR, severe TR, mild /AR), newly noted severe PHTN, ppm with brief runs of VT/PAF, who was seen in Dr. Resendiz' office for 2 days of worsening lower extremity edema. Outpatient labs showed Na+ 120 and elevated NT- proBNP at 9K. She was advised on admission and is currently being treated for Bi -V failure. #. CHF: with Right heart and diastolic heart failure as evidenced by severely elevated BNP (11K this admission), hyponatremia, pleural effusions, anasarca multiple etiologies likely contributing with obesity/obesity-hypoventilation , likely untreated sleep apnea and AF causing loss of atrial kick increase IV Lasix to 40 BID as pt still has 2-3+ pitting edema to knees bilaterally, crackles, abdominal distention #. hyponatremia: improving #. PHTN: severe by echo continue diuresis and consider outpatient sleep evaluation #. anasarca: pt still quite volume overloaded plan for further diuresis #. PAF: pt reports that she has been in AF since yesterday by pacer interrogation/ strips are not on chart for my review telemetry personally interpreted shows AF if AF persists, she could proceed to TAJ-guided DCCV prior to discharge once more euvolemic [id number] of up to 5 (CHF, htn, age 1, female) Will have rotary helper address starting anticoagulation as patient was having difficulty processing information presented in interview today #. mod MR/MS and mild AR/: serial echo surveillance recommended #. htn: Amlodipine added yesterday and Lisinopril dose increased Lasix dose increased today/ monitor 04/23/16 11:08 Subjective: Pt reports edema better. No dyspnea, cp, palps. "You are scaring the s out of me." Objective: Vital Signs (8 Hrs) Temp Pulse Resp BP Pulse Ox 04/23/16 07:12 97.9 F 75 17 140/77 H 97 04/23/16 04:00 98.2 F 75 19 148/78 H 97 Intake/Output (24 Hrs) 04/22/16 04/23/16 04/24/16 05:59 05:59 05:59 Intake Total 1040 Output Total 2400 Balance -1360 Intake: Oral (ml) 1040 Output: Urine (ml) 2400 Bedside Commode 2400 Other: Weight 90.4 kg Number of Voids Bedside Commode 1 Number of Stools Bedside Commode 1 Result Diagrams: 04/22/16 04:30 04/23/16 04:20 Telemetry: AF/paced - Physical Exam Constitutional: no apparent distress, obese Eyes: PERRL Ears, Nose, Mouth, Throat: moist mucous membranes Cardiovascular: regular rate and rhythm, systolic murmur Respiratory: reduced air movement, inspiratory crackles Gastrointestinal: normoactive bowel sounds, no tenderness, other (+distended) Skin: no ulcers, warm Musculoskeletal: other (bilateral HAYLEY) Neurologic: AAOx3 Psychiatric: cooperative, No encephalopathic ICD10 Worksheet Patient Problems: Problems Problem Status Diagnosed Congestive heart failure Acute Hyponatremia Acute Cellulitis Acute Cellulitis of leg, right Acute Left lower lobe pneumonia Acute Osteoarthritis of right hip Acute
[2016-04-23] MEDS ORDERED: MAGNESIUM SULF 2 GM/WATER 50 ML IV ONE (11:22)
--- NOTE | 2016-04-23 19:29 | HOSPPROG ---
Hospitalist Progress Note Assessment/Plan: DIAGNOSIS: # ACUTE CONGESTIVE HEART FAILURE, PRIMARILY RIGHT-SIDED, QUESTION NEW ONSET # HYPONATREMIA, SUSPECT DELUSIONAL FROM HEART FAILURE # UNCONTROLLED SYSTEMIC HYPERTENSION WHICH MAY BE AGGRAVATING HER CURRENT CARDIAC SITUATION. # MULTIPLE CHRONIC OPEN WOUNDS ON HER FEET AND TOES, CURRENTLY OPEN PRESENT ON ADMISSION, NO DEFINITE SIGN OF INFECTION AT THIS POINT # PYURIA OF UNCERTAIN SIGNIFICANCE BUT WITH PRESENCE OF LEUKOCYTE ESTERASE AND BACTERIA # PACEMAKER IN PLACE WITH ? OF INTERMITTENT FAILURE TO PACE APPROPRIATELY # MITRAL STENOSIS, KNOWN MODERATE AORTIC STENOSIS, TRICUSPID REGURG # SEVERE PULMONARY HYPERTENSION. 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 # CHRONIC LOW BACK PAIN So far overnight has had good diuresis with low-dose IV Lasix, does not feel a whole lot better yet, sodium slightly improved PLANS: -Continue IV diuresis at this time - will need to be review her youth nutritional monitor strips and her pacemaker interrogation with Cardiology -Follow sodium and magnesium closely -will begin more extensive antihypertensive treatment -will further review urinary symptoms with patient and wait on urinary culture SUBJECTIVE: So far little change in symptoms overnight Has had excellent diuresis so far total of approximately 4 L OBJECTIVE Vitals reviewed: With uncontrolled systolic and diastolic hypertension persist ; otherwise stable vitals without fever youth nutritional monitor reviewed: Mostly paced however there are some periods of bradycardia, mild, with different QRS morphology than her pacing. This raises question of pacemaker failure of either sensing or capture. The non paced slower portions of her monitor tracings are irregular and could potentially represent atrial fibrillation but this is not discernible. P waves are not discernible. Exam: alert oriented skin warm dry hands and feet remain cyanotic but are now with pinkish-red instead of dark purple which is an improved appearance though still fairly cyanotic resps not labored lungs clear BSs heart regular, systolic murmur is present abd soft nondistended nontender, bowel sounds present limbs warm, still with marked pitting edema iv site ok Laboratory data: Urine culture pending Sodium minimally increased at 126, magnesium a bit low at 1.4 I have been told by the patient that her in pacemaker was interrogated and showed continuous atrial fibrillation but I have been unable to find the report to review. Objective: Vital Signs Temp Pulse Resp BP Pulse Ox 36.2 C 76 20 161/104 H 95 04/23/16 16:00 04/23/16 16:00 04/23/16 16:00 04/23/16 16:00 04/23/16 16:00 Laboratory Results 04/23/16 04:20 04/22/16 04/23/16 04/24/16 06:59 06:59 06:59 Intake Total 1040 1615 Output Total 1640 [facility] Balance -1360 -360 ICD10 Worksheet Patient Problems: Problems Problem Status Diagnosed Congestive heart failure Acute Hyponatremia Acute Cellulitis Acute Cellulitis of leg, right Acute Left lower lobe pneumonia Acute Osteoarthritis of right hip Acute
[2016-04-23] MEDS: DULoxetine 30 MG CAP PO SCH (21:15)
[2016-04-23] MEDS: DIAZEPAM 5 MG TAB PO PRN (21:15)
[2016-04-23] MEDS: DOCUSATE SODIUM 100 MG CAP PO PRN (21:16)
[2016-04-24] MEDS: GABAPENTIN 300 MG CAP PO SCH ×3 (04:42→21:18)
[2016-04-24 04:56] LABS: ANION GAP 5 mEq/L (8-16); CARBON DIOXIDE 33 mEq/l (22-31); CHLORIDE 92 mEq/L (97-110); CREATININE 0.6 mg/dL (0.6-1.0); GLOMERULAR FILTRATION RATE > 60; GLUCOSE 91 mg/dL (70-100); MAGNESIUM 1.4 mg/dL (1.6-2.3); POTASSIUM 3.7 mEq/L (3.5-5.2); SODIUM 130 mEq/L (134-144)
[2016-04-24] MEDS ORDERED: MAGNESIUM SULF 2 GM/WATER 50 ML IV ONE (08:01)
[2016-04-24] MEDS: FERROUS SULFATE 325 MG TAB PO SCH (08:30)
[2016-04-24] MEDS: ENOXAPARIN 40 MG/0.4 ML SYR SC SCH (08:30)
[2016-04-24] MEDS: METOPROLOL TARTRATE 50 MG TAB PO SCH ×2 (08:30→21:20)
[2016-04-24] MEDS: PRESERVISION AREDS2 FORMULA EYE VIT 1 EACH PO SCH (08:31)
[2016-04-24] MEDS: POTASSIUM CL 10 MEQ TAB PO SCH (08:31)
[2016-04-24] MEDS: amLODIPine BESYLATE 5 MG TAB PO SCH (08:31)
[2016-04-24] MEDS: FUROSEMIDE 20 MG/2 ML VIAL IVP SCH ×2 (08:31→15:21)
[2016-04-24] MEDS: IRBESARTAN 150 MG TAB PO SCH (08:32)
[2016-04-24] MEDS: MULTIVITAMINS 1 EACH TAB PO SCH (08:32)
[2016-04-24] MEDS: DOCUSATE SODIUM 100 MG CAP PO PRN (08:32)
--- NOTE | 2016-04-24 12:26 | SOAPPROG ---
ARM[facility]O Progress Note Assessment/Plan: Assessment: 1. CHF with preserved left ventricular systolic function. This is noted in the setting of moderate valvular heart disease, moderate pulmonary hypertension and obesity. Currently she appears to have improved significantly with diuresis. 2. PAF. She is pacing in the ventricle. She is comfortable without symptoms. Her chads Vasc score is elevated, at least 3, therefore systemic anticoagulation is clearly indicated. This was discussed with her today. 3. Prior PPM. The device appear to be functioning normally. Plan: 1. Will start apixaban 5 mg twice daily. 2. Will continue with IV diuresis. 3. It appears that she is approaching euvolemia. Very likely, tomorrow, we may be able to switch to oral medications. 04/24/16 13:36 Subjective: Today she states that she has been feeling much better. The degree of edema that she has had a past is much improved. She denies significant dyspnea. In reviewing her chart it looks as if she has been in AFIB for the last 24 hours. Her pacemaker was interrogated yesterday. That demonstrated normal device function however indicated that she was in atrial fibrillation. Objective: Vital Signs Temp Pulse Resp BP Pulse Ox 36.6 C 76 17 142/81 H 94 04/24/16 07:51 04/24/16 07:51 04/24/16 07:51 04/24/16 07:51 04/24/16 07:51 Laboratory Results 04/24/16 04:15 04/23/16 04/24/16 04/25/16 05:59 05:59 05:59 Intake Total 1040 1865 Output Total 2400 2375 Balance -1360 -510 Physical Exam - Physical Exam General Appearance: WD/WN, no apparent distress Neck: non-tender, full range of motion Respiratory: lungs clear Cardiac/Chest: regular rate, rhythm, edema (1/4" to the mid marte), No gallop, No JVD Peripheral Pulses: 2+: carotid (R), carotid (L) Abdomen: non-tender, soft Neuro/Psych: alert, oriented x 3 ICD10 Worksheet Patient Problems: Problems Problem Status Diagnosed Congestive heart failure Acute Hyponatremia Acute Cellulitis Acute Cellulitis of leg, right Acute Left lower lobe pneumonia Acute Osteoarthritis of right hip Acute
--- NOTE | 2016-04-24 14:30 | HOSPPROG ---
Hospitalist Progress Note Assessment/Plan: ACUTE DIAGNOSES: # ACUTE CONGESTIVE HEART FAILURE, PRIMARILY RIGHT-SIDED, QUESTION NEW ONSET # HYPONATREMIA, SUSPECT DELUSIONAL FROM HEART FAILURE # UNCONTROLLED SYSTEMIC HYPERTENSION WHICH MAY BE AGGRAVATING HER CURRENT CARDIAC SITUATION. # MULTIPLE CHRONIC OPEN WOUNDS ON HER FEET AND TOES, CURRENTLY OPEN PRESENT ON ADMISSION, NO DEFINITE SIGN OF INFECTION AT THIS POINT (this is likely all due to severe hypoperfusion with her cyanotic condition of her extremities) # SEVERE PULMONARY HYPERTENSION IS NEW SINCE HER LAST ECHOCARDIOGRAM # NEW FINDING OF UNDERLYING ONGOING ATRIAL FIBRILLATION, CURRENTLY VENTRICULAR RHYTHM IS 100% PACED # ACUTE URINARY INFECTION COULD, SIMPLE CYSTITIS, WITH RESISTANT E COLI WELL GROUP C/G STREP (unclear if the strep is actually pathogenic) CHRONIC CARDIAC AND RESPIRATORY SYNDROMES: # PACEMAKER IN PLACE FOR HISTORY OF SICK SINUS SYNDROME # MODERATE MITRAL STENOSIS, MODERATE AORTIC STENOSIS, TRICUSPID REGURG # SMOKING HISTORY, SUSPECT COPD, WITH HIGH LIKELIHOOD OF SLEEP APNEA AND OBESITY RELATED HYPOVENTILATION SYNDROME # CHRONIC SEVERE BUT 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 Potassium magnesium both remain a bit low but there are no side effects or complications of diuresis so far She has now agreed, after discussion with Dr. Damon, to starting anticoagulation PLANS: -Continue IV diuresis at this time -anticoagulation started -potassium and magnesium replacement -likely needs approximately 2 more days of inpatient diuresis -will further discuss with Cardiology whether she is potentially at the point of suggesting valve intervention, though with moderate valve disease may not be there yet -will begin Bactrim for her E coli cystitis given its sensitivities I have reviewed her condition and care plan in detail today with Dr. Salvador Damon of Cardiology SUBJECTIVE: Today notes that she is able to walk much more easily, Less dyspneic with exertion Eating well Legs and feet hurt less as the edema decreases OBJECTIVE Vitals reviewed: With uncontrolled systolic and diastolic hypertension persist ; otherwise stable vitals without fever awake overnight monitor reviewed: 100% paced. Her pacemaker interrogation does show that she has underlying atrial fibrillation. Exam: alert oriented skin warm dry hands and feet remain cyanotic but are now with pinkish-red instead of dark purple which is an improved appearance though still fairly cyanotic resps not labored lungs clear BSs heart regular, systolic murmur is present abd soft nondistended nontender, bowel sounds present limbs warm, still with marked pitting edema iv site ok URINE CULTURE: with e coli with some significant resistance, as well as a strep group cg Objective: Vital Signs Temp Pulse Resp BP Pulse Ox 36.8 C 75 17 125/74 H 95 04/24/16 12:00 04/24/16 12:00 04/24/16 12:00 04/24/16 12:00 04/24/16 12:00 Laboratory Results 04/24/16 04:15 04/23/16 04/24/16 04/25/16 06:59 06:59 06:59 Intake Total 1040 1865 Output Total 2400 2375 Balance -1360 -510 ICD10 Worksheet Patient Problems: Problems Problem Status Diagnosed Congestive heart failure Acute Hyponatremia Acute Cellulitis Acute Cellulitis of leg, right Acute Left lower lobe pneumonia Acute Osteoarthritis of right hip Acute
[2016-04-24] MEDS ORDERED: MAGNESIUM HYDROXIDE 30 ML UDCUP PO PRN (17:05)
[2016-04-24] MEDS ORDERED: POLYETHYLENE GLYCOL 3350 17 GM PKT PO PRN (17:05)
[2016-04-24] MEDS ORDERED: LACTULOSE 20 GM/30 ML UDCUP PO PRN (17:05)
[2016-04-24] MEDS ORDERED: BISACODYL 10 MG SUPP PR PRN (17:05)
[2016-04-24] MEDS: SENNOSIDES/DOCUSATE SODIUM TAB PO SCH (21:18)
[2016-04-24] MEDS: APIXABAN 5 MG TAB PO SCH (21:19)
[2016-04-24] MEDS: SULFAMETHOX/TMP 800/160 MG 1 TAB PO SCH (21:19)
[2016-04-24] MEDS: DULoxetine 30 MG CAP PO SCH (21:20)
[2016-04-25 05:49] LABS: ANION GAP 4 mEq/L (8-16); CALCIUM 8.2 mg/dL (8.5-10.4); CARBON DIOXIDE 36 mEq/l (22-31); CHLORIDE 90 mEq/L (97-110); CREATININE 0.6 mg/dL (0.6-1.0); GLOMERULAR FILTRATION RATE > 60; GLUCOSE 88 mg/dL (70-100); MAGNESIUM 1.6 mg/dL (1.6-2.3); POTASSIUM 3.5 mEq/L (3.5-5.2); SODIUM 130 mEq/L (134-144)
[2016-04-25] MEDS: GABAPENTIN 300 MG CAP PO SCH ×3 (06:04→20:28)
--- NOTE | 2016-04-25 08:47 | WOCRNPDOC ---
RICHARD Advanced Assessment Note - Skin Integrity Problem, Advanced Assess Left First Toe Dressing Type: Gauze, Hira Dressing Description: Clean/Dry, Intact Exudate Amount: None Integumentary Issue Intervention: Visualized Under Dressing Fahad Wound Tissue: Xerotic Fahad Wound Swelling: None Wound Bed Color: Brown, Red Wound Bed Constitution: Smooth Tissue, Scab Wound Edges: Irregular Site Odor: None Site Odor Comment: 0.9cmx0.5cmx0.1cm Skin Integrity Problem Comment: Abrasion-like lesion noted on dorsal aspect of L great toe, a mixture of scab and smooth tissue. Entire L foot and fahad-wound tissue is xerotic. Patient reports significant neuropathy in both lower extremities, and she says these wounds "come and go." Past treatment has included orthotics and covering wounds w/ gauze and tape. I applied Attrac-tain cream to both feet, and explained the importance of using humectants to maintain skin integrity. Order for Silvasorb and Allevyn until site healed. Left First Metatarsal Head Dressing Type: Gauze, Hira Dressing Description: Clean/Dry, Intact Exudate Amount: Scant Exudate Color: Reddish/Yellow Exudate Characteristic(s): Serosanguinous Integumentary Issue Intervention: Visualized Under Dressing Fahad Wound Tissue: Xerotic Fahad Wound Swelling: None Wound Bed Color: Brown, Red Wound Bed Constitution: Smooth Tissue, Scab Wound Edges: Irregular Site Measurement - Head-to-Toe Length X Width X Depth (cm): 0.4cmx0.6cmx0.1cm Skin Integrity Problem Comment: Abrasion-like lesion w/ mixture of dried scab and smooth tissue. Fahad-wound tissue xerotic, prone to fissuring and breakdown. Per patient report, this is another site where the wound "comes and goes." Same tx ordered for all foot wounds, w/ emphasis on Attrac-tain lotion to both feet BID. Right Lateral Foot Dressing Type: Gauze, Hiar Dressing Description: Clean/Dry, Intact Exudate Amount: None Exudate Color: Brown Exudate Characteristic(s): None Integumentary Issue Intervention: Visualized Under Dressing Fahad Wound Tissue: Xerotic, Calloused Fahad Wound Swelling: None Wound Bed Color: Brown Wound Bed Constitution: Scab Wound Edges: Irregular Site Odor: None Site Measurement - Head-to-Toe Length X Width X Depth (cm): 0.5cmx0.6cmx0.1cm Skin Integrity Problem Comment: Abrasion-like lesion w/ intact scab noted, xerosis throughout entire foot. This wound has calloused fahad-wound tissue, indicative of neuropathic changes in extremity and the result of pressure. Patient says she has seen podiatrists outpatient, and says she has shoes to help alleviate pressure. Given the condition of this wound, I think she would benefit from another consult when she is dc'd to reassess the fit of her shoes.
--- NOTE | 2016-04-25 08:48 | CPEKG ---
Heart Rate: 75 RR Interval: 800 P-R Interval: 178 QRSD Interval: 182 QT Interval: 460 QTC Interval: 514 P Barton: 0 QRS Barton: -77 T Wave Barton: 95 EKG Severity - ABNORMAL ECG - EKG Impression: VENTRICULAR-PACED RHYTHM Electronically Signed By: Alba Martin 25-Apr-2016 12:19:48
[2016-04-25] MEDS ORDERED: MAGNESIUM SULF 1 GM/DEXTROSE 100 ML IV ONE (08:50)
[2016-04-25] MEDS: APIXABAN 5 MG TAB PO SCH ×2 (09:01→20:26)
[2016-04-25] MEDS: IRBESARTAN 150 MG TAB PO SCH (09:01)
[2016-04-25] MEDS: SENNOSIDES/DOCUSATE SODIUM TAB PO SCH ×2 (09:01→20:26)
[2016-04-25] MEDS: FERROUS SULFATE 325 MG TAB PO SCH (09:03)
[2016-04-25] MEDS: SULFAMETHOX/TMP 800/160 MG 1 TAB PO SCH ×2 (09:03→20:26)
[2016-04-25] MEDS: FUROSEMIDE 20 MG/2 ML VIAL IVP SCH (09:04)
[2016-04-25] MEDS: amLODIPine BESYLATE 5 MG TAB PO SCH (09:04)
[2016-04-25] MEDS: METOPROLOL TARTRATE 50 MG TAB PO SCH ×2 (09:04→20:23)
[2016-04-25] MEDS: POTASSIUM CL 10 MEQ TAB PO SCH (09:04)
[2016-04-25] MEDS: PRESERVISION AREDS2 FORMULA EYE VIT 1 EACH PO SCH (09:04)
[2016-04-25] MEDS: MULTIVITAMINS 1 EACH TAB PO SCH (09:04)
--- NOTE | 2016-04-25 11:01 | PDCARPN ---
Cardiology Progress Note Chief Complaint: Mild dyspnea continues to be noted Assessment/Plan: Assessment: Patient is a 75 y/o female with history of valvular heart disease (mitral regurgitation and stenosis), pHTN, HTN, SSS s/p PPM, and pAF (now on NOAC with Eliquis for [id number] score of 5), who presented to [facility] with signs and symptoms of heart failure. Over the past several days, diuresis with IV lasix has led to weight reduction of over 15 pounds. Patient is feeling better, but still has mild lower extremity swelling. No complaints of chest pains or pressure. PND and orthopnea were not clarified. No fevers or chills, but ongoing issues with non healing ulcers (which are being followed). Uncertain on the etiology for the failure noted (? query infection/atrial fibrillation/ heart failure) in patient with valve pathology. NOAC therapy was started given the uptick in atrial fibrillation noted as well as the heart failure appreciated. Plan: (1) Would discontinue IV lasix in favor of PO - outpatient dose was 20 mg per day ... patient on 40 mg IV twice per day at present (2) Would maintain therapy on Eliquis as at present (3) Maintain therapy on CCB, ARB, and beta blockers for HTN as well as some degree of rate control (4) Ambulate patient today (5) Maintain pacer interrogations as scheduled (6) Outpatient follow up for discussion about valve pathology Subjective: mild shortness of breath Reviewed/Discussed With: multidisciplinary team Time Spent With Patient: 20 minutes Objective: Vital Signs (8 Hrs) Temp Pulse Resp BP Pulse Ox 04/25/16 07:25 36.6 C 74 24 H 151/89 H 96 04/25/16 04:00 36.6 C 75 19 143/96 H 96 Intake/Output (24 Hrs) 04/24/16 04/25/16 04/26/16 05:59 05:59 05:59 Intake Total 186 2190 Output Total 2375 3620 Balance -510 -1430 Intake: Oral (ml) 18640 Output: Urine (ml) 2375 3620 Bedside Commode 2275 3620 Incontinence 100 Other: Weight 87.7 kg 85.1 kg Number of Voids Bedside Commode 1 Incontinence 1 3 Number of Stools Bedside Commode 2 1 Result Diagrams: 04/22/16 04:30 04/25/16 05:05 Telemetry: ventricular paced rhythm - Physical Exam Constitutional: WDWN, healthy appearing, no apparent distress Eyes: PERRL, EOMI Ears, Nose, Mouth, Throat: moist mucous membranes Cardiovascular: irregularly irregular Peripheral Pulses: 2+: dorsalis-pedis (R), dorsalis-pedis (L) Respiratory: inspiratory crackles, dullness to percussion Gastrointestinal: normoactive bowel sounds Skin: no rashes, other (mild lower extremity swelling) Musculoskeletal: no muscular tenderness, no joint effusions Neurologic: AAOx3, CN II-XII grossly intact Psychiatric: cooperative, interactive, following commands ICD10 Worksheet Patient Problems: Problems Problem Status Diagnosed Chronic Disease Mgmt/Transitional Care Acute Congestive heart failure Acute Hyponatremia Acute Cellulitis Acute Cellulitis of leg, right Acute Left lower lobe pneumonia Acute Osteoarthritis of right hip Acute
--- NOTE | 2016-04-25 12:23 | HOSPPROG ---
Hospitalist Progress Note Assessment/Plan: # acute congestive heart failure with preserved ejection fraction - patient has responded well to IV diuresis chest x-ray( personally reviewed and interpreted) bilateral vascular congestion- oxygen saturations 98% on 2 L - transition to p.o. diuretics today - wean oxygen as able # hypertension- uncontrolled- have been actively up titrating medications - continue metoprolol, losartan - consider increasing Norvasc today to 10 mg daily - changing diuretic to p.o. today # paroxysmal atrial fibrillation- with permanent pacemaker placement- telemetry( personally reviewed and interpreted) V-paced in the 70s - continue metoprolol 50 twice daily - Eliquis started by Cardiology # acute simple cystitis- complete current antibiotic course # acute hyponatremia- thought secondary to hypervolemia with acute heart failure- sodium 126-130 this morning - continue diuresis # chronic discoloration of the tips of the fingers- fingers are purple particularly the lateral 3 on her right hand- denies pain previous workup for Raynaud's negative # proph - Eliquis # diet cardiac # disposition- potentially tomorrow if medication changes today are well tolerated I have discussed the case with the RN we will wean oxygen as able and encourage diet and ambulation Subjective: feels excellent Objective: Vital Signs Temp Pulse Resp BP Pulse Ox 36.6 C 74 24 H 151/89 H 96 04/25/16 07:25 04/25/16 07:25 04/25/16 07:25 04/25/16 07:25 04/25/16 07:25 Laboratory Results 04/25/16 05:05 04/24/16 04/25/16 04/26/16 05:59 05:59 05:59 Intake Total 1865 2190 120 Output Total 2375 3620 1250 Balance -510 -4723 -9460 - Physical Exam Constitutional: chronically ill appearing Eyes: anicteric sclera Ears, Nose, Mouth, Throat: moist mucous membranes Cardiovascular: regular rate and rhythym, systolic murmur Respiratory: no respiratory distress, inspiratory crackles Gastrointestinal: normoactive bowel sounds, soft, non-tender abdomen Genitourinary: no bladder fullness Skin: warm, normal color, other ( purple discoloration of the tips of the fingers) Musculoskeletal: No asymmetric calves Neurologic: AAOx3 Psychiatric: interacting appropriately, not anxious Lymph, Heme, Immunologic: no cervical LAD ICD10 Worksheet Patient Problems: Problems Problem Status Diagnosed Chronic Disease Mgmt/Transitional Care Acute Congestive heart failure Acute Hyponatremia Acute Cellulitis Acute Cellulitis of leg, right Acute Left lower lobe pneumonia Acute Osteoarthritis of right hip Acute
[2016-04-25] MEDS ORDERED: amLODIPine BESYLATE 5 MG TAB PO ONE (13:00)
[2016-04-25] MEDS: FUROSEMIDE 40 MG TAB PO SCH (13:45)
[2016-04-25] MEDS ORDERED: PROTOCOL MAGNESIUM 1 DOSE IV PRN (16:58)
[2016-04-25] MEDS: DULoxetine 30 MG CAP PO SCH (20:27)
[2016-04-26] MEDS ORDERED: POTASSIUM CL 20 MEQ TAB PO ONE (02:30)
[2016-04-26 05:58] LABS: ANION GAP 4 mEq/L (8-16); CALCIUM 7.9 mg/dL (8.5-10.4); CARBON DIOXIDE 36 mEq/l (22-31); CHLORIDE 89 mEq/L (97-110); CREATININE 0.7 mg/dL (0.6-1.0); GLOMERULAR FILTRATION RATE > 60; GLUCOSE 90 mg/dL (70-100); MAGNESIUM 1.5 mg/dL (1.6-2.3); SODIUM 129 mEq/L (134-144)
[2016-04-26] MEDS: GABAPENTIN 300 MG CAP PO SCH ×2 (06:12→13:41)
[2016-04-26] MEDS ORDERED: MAGNESIUM SULF 1 GM/DEXTROSE 100 ML IV ONE (07:08)
[2016-04-26] MEDS: SENNOSIDES/DOCUSATE SODIUM TAB PO SCH (08:14)
[2016-04-26] MEDS: PRESERVISION AREDS2 FORMULA EYE VIT 1 EACH PO SCH (08:14)
[2016-04-26] MEDS: APIXABAN 5 MG TAB PO SCH (08:15)
[2016-04-26] MEDS: FUROSEMIDE 40 MG TAB PO SCH (08:15)
[2016-04-26] MEDS: MULTIVITAMINS 1 EACH TAB PO SCH (08:15)
[2016-04-26] MEDS: POTASSIUM CL 10 MEQ TAB PO SCH (08:15)
[2016-04-26] MEDS: SULFAMETHOX/TMP 800/160 MG 1 TAB PO SCH (08:16)
[2016-04-26] MEDS: FERROUS SULFATE 325 MG TAB PO SCH (08:16)
[2016-04-26] MEDS: IRBESARTAN 150 MG TAB PO SCH (08:16)
[2016-04-26] MEDS: METOPROLOL TARTRATE 50 MG TAB PO SCH (08:16)
[2016-04-26 11:37] VITALS: BP 103/57; PULSE 73; RESP 24; TEMP 99
[2016-04-26 11:49] VITALS: O2SAT 84
--- NOTE | 2016-04-26 13:03 | PDIAF ---
- Diagnosis Diagnosis: heart failure Code Status: Full Code - Medication Management Discharge Medications: Medications to Continue on Transfer DULoxetine [Cymbalta 30 MG (*)] 30 mg PO HS 04/01/15 [Last Taken 04/20/16] Diazepam [Valium 5 MG (*)] 5 mg PO HS PRN 04/01/15 [Last Taken 04/20/16] Irbesartan [Avapro 300 mg] 300 mg PO DAILY 04/01/15 [Last Taken 04/21/16] Ferrous Sulfate [Ferrous Sulf 325 MG (*)] 325 mg PO DAILY #0 tab 04/05/15 [Last Taken 04/21/16] Gabapentin [Neurontin 300 MG (*)] 300 mg PO Q8 02/12/16 [Last Taken 04/21/16 08: 00] Metoprolol Tartrate 50 mg PO BID 04/21/16 [Last Taken 04/21/16 08:00] Multivitamins [Multivitamin (*)] 1 each PO DAILY 04/21/16 [Last Taken 04/21/16] Vit A/Vit C/Vit E/Zinc/Copper [Preservision Areds Softgel] 1 each PO DAILY 04/21 [Last Taken 04/21/16] Apixaban [Eliquis] 5 mg PO BID #60 tab 04/26/16 [Last Taken Unknown] Furosemide [Lasix 20 MG (*)] 20 mg PO BID #60 tab 04/26/16 [Last Taken Unknown] Potassium Cl [Klor-Con 10 meq (RX)] 10 meq PO DAILY #30 tab 04/26/16 [Last Taken Unknown] amLODIPine BESYLATE [Norvasc 10 mg (*)] 10 mg PO DAILY #30 tab 04/26/16 [Last Taken Unknown] Discharge Medications: Refer to the Discharge Home Medication list for PRN reason. - Orders Services needed: Home Care, Registered Nurse Home Care Face to Face: I certify that this patient was under my care and that I had the required [id number] encounter meeting the encounter requirements on the discharge day. My findings support the fact that the patient is homebound as defined in CMS Chapter 7 Medicare Benefits Manual 30.1.1, The condition of the patient is such that there exists a normal inability to leave home and consequently, leaving home would require a considerable and taxing effort. Diet Recommendation: cardiac -low fat low salt Diet Texture: Regular Texture Diet - Follow Up Care Current Providers and Referrals: Marilee Davila PA [Physician Human Resources Coordinator] - Mohamud Franco DO [Primary Care Provider] - As per Instructions
--- NOTE | 2016-04-26 13:59 | PDCARPN ---
Cardiology Progress Note Chief Complaint: Patient doing well today. No cardiovascular complaints Assessment/Plan: Assessment: 04-26-16 Patient doing better today. Up in chair eating lunch. No active cardiovascular complaints. IV diuretics have been changed over to oral, and tolerated. Another kilogram was lost between yesterday and today with PO therapy. Patient reports that she is feeling better overall. Sodium level has been 130 for past two days, and dropped down to 129 today. Review of labs over several admissions shows this range to be commonplace for the patient. Patient voicing her desire to go home. 04-25-16 Patient is a 75 y/o female with history of valvular heart disease (mitral regurgitation and stenosis), pHTN, HTN, SSS s/p PPM, and pAF (now on NOAC with Eliquis for [id number] score of 5), who presented to [facility] with signs and symptoms of heart failure. Over the past several days, diuresis with IV lasix has led to weight reduction of over 15 pounds. Patient is feeling better, but still has mild lower extremity swelling. No complaints of chest pains or pressure. PND and orthopnea were not clarified. No fevers or chills, but ongoing issues with non healing ulcers (which are being followed). Uncertain on the etiology for the failure noted (? query infection/atrial fibrillation/ heart failure) in patient with valve pathology. NOAC therapy was started given the uptick in atrial fibrillation noted as well as the heart failure appreciated. Plan: (1) PO lasix to continue at 20 mg twice per day (2) Continue therapy on Eliquis (3) Continue therapy on CCB, ARB, and beta blockers for HTN control as well as rate control assistance (4) Ongoing ambulation (5) Pacer interrogations to be scheduled (6) Would ensure outpatient follow up with cardiology given the valve pathology noted Subjective: No cardiovascular complaints Reviewed/Discussed With: hospitalist, multidisciplinary team Time Spent With Patient: 15 minutes Objective: Vital Signs (8 Hrs) Temp Pulse Resp BP Pulse Ox 04/26/16 11:49 84 L 04/26/16 11:32 37.2 C 73 24 H 103/57 L 93 04/26/16 08:00 37.1 C 75 19 137/70 H 97 Intake/Output (24 Hrs) 04/25/16 04/26/16 04/27/16 05:59 05:59 05:59 Intake Total 2190 1020 400 Output Total 3620 2225 250 Balance -1430 -1205 150 Intake: Oral (ml) 2190 900 400 IV Intake (ml) 120 Output: Urine (ml) 3620 2225 250 Bedside Commode 3620 975 250 Incontinence 1250 Other: Weight 85.1 kg 84.1 kg Number of Voids Bedside Commode 1 1 Incontinence 3 2 Number of Stools Bedside Commode 1 1 Result Diagrams: 04/22/16 04:30 04/26/16 05:10 - Physical Exam Constitutional: WDWN, healthy appearing, no apparent distress Eyes: PERRL Ears, Nose, Mouth, Throat: moist mucous membranes Cardiovascular: irregularly irregular Peripheral Pulses: 2+: dorsalis-pedis (R), dorsalis-pedis (L) Respiratory: no crackles, reduced air movement Gastrointestinal: normoactive bowel sounds Skin: no edema Musculoskeletal: no muscular tenderness Neurologic: AAOx3, CN II-XII grossly intact Psychiatric: cooperative, interactive, following commands ICD10 Worksheet Patient Problems: Problems Problem Status Diagnosed Chronic Disease [facility]/Transitional Care Acute Congestive heart failure Acute Hyponatremia Acute Cellulitis Acute Cellulitis of leg, right Acute Left lower lobe pneumonia Acute Osteoarthritis of right hip Acute
--- NOTE | 2016-04-26 16:31 | GDS ---
[f rep st] DISCHARGE SUMMARY DISCHARGE DIAGNOSES: Include: 1. Acute diastolic heart failure. 2. Hypertension. 3. Paroxysmal atrial fibrillation. 4. Acute simple cystitis. 5. Hyponatremia, thought hypervolemic. 6. Chronic purple discoloration of the fingertips. HISTORY OF PRESENT ILLNESS: This is a 75-year-old female, who presented on 04/21/2016 with complaint s of swelling. For details of the patient's initial presentation, please see the history and physica l dated 04/21/2016. CONSULTATIVE SERVICES: Cardiology. PROCEDURES: On 04/21/2016, patient had a transthoracic echocardiogram that shows LV normal size with concentric LVH and diastolic dysfunction. HOSPITAL COURSE BY ISSUE: 1. Acute diastolic heart failure: Patient was uptitrated on IV diuretics with good response. On day of disposition, her lower extremity edema is markedly improved. She has been transitioned from twice daily IV to oral Lasix and will be discharged on 20 mg b.i.d., which is twice the dosing she h ad prior to admission. She is to follow on 05/03/2016 with outpatient Cardiology for her first post disposition followup. 2. Acute hypoxic respiratory failure, presumed secondary to acute diastolic heart failure: Patient h as difficult to measure oxygen saturations secondary to the vascular changes of her fingertips. Hays eulogio, with earlobe monitoring we did find the patient dropped into the mid 80s with exertion and inter mittently mid 80s at rest. She will be provided with supplemental oxygen at home, where she is ambul atory. We are hopeful this can be short-term if she continues to respond well to oral diuresis. 3. Hypertension: Patient had her medications at home uptitrated. She is being discharged on Norvas c 10, metoprolol 50 b.i.d., irbesartan 300 daily, Lasix 20 b.i.d. Again, to follow in the outpatient Cardiology Clinic on May 03 for her first post disposition followup. 4. Acute simple cystitis: Patient received 3 days of oral antibiotics with improvement in her sympt oms. 5. Hyponatremia, appears more chronic: Based on laboratory review, we suspect this is related to hy pervolemia. Continue to follow her sodiums in the outpatient setting with diuresis. 6. Purple discoloration of her fingertips: Patient has had a workup for Raynaud's, which is what we suspected after initial evaluation. She reports this has been negative. She will need to continue to follow in the outpatient setting for a vascular workup and perfusion workup of her fingers. 7. Paroxysmal atrial fibrillation: Patient was initiated on Eliquis and will continue on metoprolol 50 twice a day. She is A paced in the 70s on the day of disposition. MEDICATIONS AT THE TIME OF DISPOSITION: Please reference medication reconciliation printed on 2016. PENDING STUDIES AT THE TIME OF THIS DICTATION: None. FOLLOWUP APPOINTMENTS: With Cardiology on 05/03/2016 for blood pressure and laboratory check. TIME SPENT: I spent greater than 30 minutes in the planning and coordination of this discharge. /[id number]
== END 2016-04-26 15:15 | disposition home health service (06) | DRG 291 ==
LOC: INTOOBSV 19:32 → F1N 21:01 → OBSVTOIN 04-22 10:14 → F2W 04-22 17:10
PROVIDERS: ADMIT Internal Medicine; ATTEND Hospitalist
DX: I50.31 Acute diastolic (congestive) heart failure (principal); J96.01 Acute respiratory failure with hypoxia; N30.00 Acute cystitis without hematuria; B96.20 Unspecified Escherichia coli [E. coli] as the cause of diseases classified elsewhere; E87.1 Hypo-osmolality and hyponatremia; I48.0 Paroxysmal atrial fibrillation; I27.2 Other secondary pulmonary hypertension; I34.0 Nonrheumatic mitral (valve) insufficiency; I34.2 Nonrheumatic mitral (valve) stenosis; I35.1 Nonrheumatic aortic (valve) insufficiency; I35.0 Nonrheumatic aortic (valve) stenosis; I36.2 Nonrheumatic tricuspid (valve) stenosis with insufficiency; R23.0 Cyanosis; G62.9 Polyneuropathy, unspecified; L97.529 Non-pressure chronic ulcer of other part of left foot with unspecified severity; L97.519 Non-pressure chronic ulcer of other part of right foot with unspecified severity; I10 Essential (primary) hypertension; Z95.0 Presence of cardiac pacemaker; Z87.891 Personal history of nicotine dependence
CPT/HCPCS: 97116-GP; 97161-GP; 97530-GP; G0378; G8978-GP-CI; G8979-GP-CI; G8980-GP-CI; J1650; J3475

== ENCOUNTER 2016-05-25 15:43 | Emergency (ER) | payer OTHER ==
[2016-05-25] MEDS ORDERED: IOPAMIDOL (ISOVUE-370) 150 ML BTL IV ONE (15:50)
--- NOTE | 2016-05-25 16:02 | EDPHY ---
H & P Stated Complaint: chf/coughing up blood on eliquis for heart failure HPI/ROS: HPI CHIEF COMPLAINT: Hemoptysis HISTORY OF PRESENT ILLNESS: This patient very pleasant 75-year-old female significant past medical history for diastolic heart failure, hypertension, AFib , pacemaker on Eliquis, hyponatremia, presents to the emergency room after she had 2 episodes of coughing up a small amount of bright red blood. Patient denies recent illness, denies fever, denies chest pain or shortness of breath, denies pleuritic pain. No history of pulmonary embolism or DVT. Patient states she was sitting and all of sudden developed a cough and coughed up bright red blood. Small amount. 2 separate episodes. She denies any other complaints. Specifically denies chest pain, shortness of breath, pleuritic pain, leg swelling or calf pain. Denies recent illness fever or pneumonia type symptoms. Denies shortness of breath. Past Medical History: Diastolic heart failure, hypertension, AFib, cystitis, hyponatremia, pacemaker on Eliquis Past Surgical History: Pacemaker left chest Social History: denies use of tobacco, alcohol, drugs Family History: Noncontributory ROS REVIEW OF SYSTEMS: A comprehensive 10 point review of systems is otherwise negative aside from elements mentioned in the history of present illness. Exam Constitutional appears well nontoxic, triage nursing summary reviewed, vital signs reviewed, awake/alert. Eyes normal conjunctivae and sclera, EOMI, PERRLA. HENT normal inspection, atraumatic, moist mucus membranes, no epistaxis, neck supple/ no meningismus, no raccoon eyes. Respiratory clear to auscultation bilaterally, normal breath sounds, no respiratory distress, no wheezing. Cardiovascular rate normal, regular rhythm, no murmur, no edema, distal pulses normal. Gastrointestinal soft, non-tender, no rebound, no guarding, normal bowel sounds, no distension, no pulsatile mass. Genitourinary no CVA tenderness. Musculoskeletal no midline vertebral tenderness, full range of motion, no calf swelling, no tenderness of extremities, no meningismus, good pulses, neurovascularly intact. Skin pink, warm, & dry, no rash, skin atraumatic. Neurologic awake, alert and oriented x 3, AAOx3, moves all 4 extremities equally, motor intact, sensory intact, CN II-XII intact, normal cerebellar, normal vision, normal speech. Psychiatric normal mood/affect. Heme/Lymph/Immune no lymphadenopathy. Differential Diagnosis: Includes but is not limited to in a particular order, bronchitis, bronchiectasis, pulmonary embolism, pneumonia, heart failure. Medical Decision Making: Patient will have an IV established obtain blood work , chest x-ray, check a D-dimer, troponin and BNP. Re-evaluation: EKG interpretation by me on record in [employer] system. Impression time of EKG 1716: This is a ventricularly paced rhythm rate of 75 otherwise unremarkable EKG. 1726: re-evaluation at this time this patient is resting comfortably no acute distress. No hypoxia. No chest pain or shortness of breath. No evidence that this patient is in acute decompensated heart failure. She has no pulmonary edema. Patient did have a positive D-dimer with hemoptysis so patient got a CT angiogram of her chest. Her sodium is noted to be slightly low 128 however close to her baseline of 129. CT scan of the angiogram chest with IV contrast. The results of the study are cardiomegaly and pulmonary arterial hypertension, no evidence of pulmonary embolism, there is bronchitis appreciated. The study was read by Dr. Cruz. I viewed the images myself on the PACS system. 1728: Re-evaluation at this time patient is resting comfortably I will allow her to go home with albuterol inhaler. She does understand such as a family at bedside to return to the emergency room immediately if he develops worsening hemoptysis including massive hemoptysis shortness of breath chest pain or any questions or concerns. 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 She has a follow-up appoint with Dr. Stewart on Monday. She is in transitional care. Source: Patient - Personal History Current Tetanus/Diphtheria Vaccine: Unsure Tetanus Vaccine Date: unknown - Medical/Surgical History Hx Asthma: No Hx Chronic Respiratory Disease: No Hx Diabetes: No Hx Cardiac Disease: Yes Hx Renal Disease: No Hx Cirrhosis: No Hx Alcoholism: No Hx HIV/AIDS: No Hx Splenectomy or Spleen Trauma: No Other PMH: CHF, L total knee, R total hip, HTN, Bradycardia, Pacer, Arthritis, Carpal Tunnel Release, Neuropathy back surgeries, colon resection - Social History Smoking Status: Former smoker Constitutional: Initial Vital Signs Temperature (C) 36.8 C 05/25/16 15:47 Heart Rate 74 05/25/16 15:47 Respiratory Rate 18 05/25/16 15:47 Blood Pressure 128/89 H 05/25/16 15:47 O2 Sat (%) 95 05/25/16 15:47 O2 Delivery Mode Room Air O2 (L/minute) 2 Allergies/Adverse Reactions: morphine [Morphine] Allergy (Mild, Verified 05/25/16 15:44) VOMITTING Home Medications: Medication Instructions Recorded DULoxetine [Cymbalta 30 MG (*)] 30 mg PO HS 04/01/15 Diazepam [Valium 5 MG (*)] 5 mg PO HS PRN 04/01/15 Irbesartan [Avapro 300 mg] 300 mg PO DAILY 04/01/15 Ferrous Sulfate [Ferrous Sulf 325 325 mg PO DAILY #0 tab 04/05/15 MG (*)] Gabapentin [Neurontin 300 MG (*)] 300 mg PO Q8 02/12/16 Metoprolol Tartrate 50 mg PO BID 04/21/16 Multivitamins [Multivitamin (*)] 1 each PO DAILY 04/21/16 Vit A/Vit C/Vit E/Zinc/Copper 1 each PO DAILY 04/21/16 [Preservision Areds Softgel] Apixaban [Eliquis] 5 mg PO BID #60 tab 04/26/16 Furosemide [Lasix 20 MG (*)] 20 mg PO BID #60 tab 04/26/16 Potassium Cl [Klor-Con 10 meq (RX)] 10 meq PO DAILY #30 tab 04/26/16 amLODIPine BESYLATE [Norvasc 10 mg 10 mg PO DAILY #30 tab 04/26/16 (*)] Albuterol [Proventil Inhaler HFA 1 - 2 puffs IH Q4H #1 mdi 05/25/16 (*)] Medical Decision Making - Data Points Laboratory Results: Laboratory Results 05/25/16 16:08 05/25/16 16:08 05/25/16 05/25/16 05/25/16 16:08 16:08 16:08 WBC 6.64 10^3/uL 10^3/uL (3.80-9.50) RBC 3.92 10^6/uL L 10^6/uL (4.18-5.33) Hgb 11.9 g/dL L g/dL (12.6-16.3) Hct 35.1 % L % (38.0-47.0) MCV 89.5 fL fL (81.5-99.8) MCH 30.4 pg pg (27.9-34.1) MCHC 33.9 g/dL g/dL (32.4-36.7) RDW 13.3 % % (11.5-15.2) Plt Count 208 10^3/uL 10^3/uL (150-400) MPV 9.3 fL fL (8.7-11.7) Neut % (Auto) 64.1 % % (39.3-74.2) Lymph % (Auto) 19.1 % % (15.0-45.0) [place] % (Auto) 11.4 % % (4.5-13.0) Eos % (Auto) 4.2 % % (0.6-7.6) Baso % (Auto) 0.9 % % (0.3-1.7) Nucleat RBC Rel Count 0.0 % % (0.0-0.2) Absolute Neuts (auto) 4.25 10^3/uL 10^3/uL (1.70-6.50) Absolute Lymphs (auto) 1.27 10^3/uL 10^3/uL (1.00-3.00) Absolute Monos (auto) 0.76 10^3/uL 10^3/uL (0.30-0.80) Absolute Eos (auto) 0.28 10^3/uL 10^3/uL (0.03-0.40) Absolute Basos (auto) 0.06 10^3/uL 10^3/uL (0.02-0.10) Absolute Nucleated RBC 0.00 10^3/uL 10^3/uL (0-0.01) Immature Gran % 0.3 % % (0.0-1.1) Immature Gran # 0.02 10^3/uL 10^3/uL (0.00-0.10) PT 15.6 SEC H SEC (12.0-15.0) INR 1.24 H (0.83-1.16) APTT 37.0 SEC SEC (23.0-38.0) D-Dimer 1.28 ug/mLFEU H ug/mLFEU (0.00-0.50) Sodium 128 mEq/L L mEq/L (134-144) Potassium 3.9 mEq/L mEq/L (3.5-5.2) Chloride 88 mEq/L L mEq/L (97-110) Carbon Dioxide 29 mEq/l mEq/l (22-31) Anion Gap 11 mEq/L mEq/L (8-16) BUN 21 mg/dL mg/dL (7-23) Creatinine 0.9 mg/dL mg/dL (0.6-1.0) Estimated GFR > 60 Glucose 96 mg/dL mg/dL (70-100) Calcium 9.4 mg/dL mg/dL (8.5-10.4) Troponin I < 0.012 ng/mL ng/mL (0-0.034) NT-Pro-B Natriuret Pep 2950 pg/mL H pg/mL (0-450) Medications Given: Discontinued Medications Sodium Chloride (Ns) 500 mls @ 0 mls/hr IV ONCE ONE PRN Reason: As Directed Stop: 05/25/16 16:12 Last Admin: 05/25/16 16:20 Dose: 500 mls Departure - Departure Disposition: Home, Routine, Self-Care Clinical Impression: Hemoptysis, Bronchitis Condition: Good Instructions: Hemoptysis (ED), Acute Bronchitis (ED) Additional Instructions: Return immediately to the emergency room if he develops any worsening symptoms includes worsening coughing, shortness of breath, chest pain or coughing up further blood. Referrals: Mohamud Franco DO [Primary Care Provider] - As per Instructions Prescriptions: Albuterol [Proventil Inhaler HFA (*)] 1 - 2 puffs IH Q4H #1 tiera
[2016-05-25] MEDS ORDERED: NS 500 ML IV ONE (16:11)
[2016-05-25 16:22] LABS: % IMMATURE GRANULYOCYTES 0.3 % (0.0-1.1); ABSOLUTE IMMATURE GRANULOCYTES 0.02 10^3/uL (0.00-0.10); ADD DIFF? NO; ADD MORPH? NO; ADD SCAN? NO; ATYPICAL LYMPHOCYTE FLAG 20 (0-99); FRAGMENT RBC FLAG 0 (0-99); HEMATOCRIT 35.1 % (38.0-47.0); HEMOGLOBIN 11.9 g/dL (12.6-16.3); LEFT SHIFT FLG 0 (0-99); LIPEMIA HEMOLYSIS FLAG 90 (0-99); MEAN CELL HEMOGLOBIN 30.4 pg (27.9-34.1); MEAN CELL HEMOGLOBIN CONCENTR. 33.9 g/dL (32.4-36.7); MEAN CELL VOLUME 89.5 fL (81.5-99.8); MEAN PLATELET VOLUME 9.3 fL (8.7-11.7); PLATELET CLUMPS FLAG 0 (0-99); PLATELET COUNT 208 10^3/uL (150-400); RED BLOOD CELL COUNT 3.92 10^6/uL (4.18-5.33); RED CELL DISTRIBUTION WIDTH 13.3 % (11.5-15.2)
[2016-05-25 16:36] LABS: INR 1.24 (0.83-1.16); PROTIME(PATIENT) 15.6 SEC (12.0-15.0)
[2016-05-25 16:47] LABS: ANION GAP 11 mEq/L (8-16); CALCIUM 9.4 mg/dL (8.5-10.4); CARBON DIOXIDE 29 mEq/l (22-31); CHLORIDE 88 mEq/L (97-110); CREATININE 0.9 mg/dL (0.6-1.0); GLOMERULAR FILTRATION RATE > 60; GLUCOSE 96 mg/dL (70-100); POTASSIUM 3.9 mEq/L (3.5-5.2); SODIUM 128 mEq/L (134-144)
[2016-05-25 16:59] LABS: TROPONIN I < 0.012 ng/mL (0-0.034)
--- NOTE | 2016-05-25 17:18 | CPEKG ---
Heart Rate: 75 RR Interval: 800 P-R Interval: 176 QRSD Interval: 206 QT Interval: 484 QTC Interval: 541 P [place]: 0 QRS [place]: -81 T Wave [place]: 92 EKG Severity - ABNORMAL ECG - EKG Impression: VENTRICULAR-PACED RHYTHM Electronically Signed By: García Prasad 26-May-2016 08:45:31
[2016-05-25 17:48] VITALS: BP 136/78; PULSE 67; RESP 15; TEMP 98.4; O2SAT 93
== END 2016-05-25 17:56 | disposition home or self-care (01) ==
DX: R04.2 Hemoptysis (principal); J40 Bronchitis, not specified as acute or chronic; I10 Essential (primary) hypertension; Z95.0 Presence of cardiac pacemaker; Z79.01 Long term (current) use of anticoagulants
CPT/HCPCS: 71010; 71275; 93005; 99285; Q9967

== ENCOUNTER → 2016-06-16 | Outpatient (CLI) | payer OTHER ==
[~2016-06-16] MED LIST: IOPAMIDOL (ISOVUE 370) 100 ML BTL IV ONE
== END ==
LOC: CIMAGING 09:55
PROVIDERS: ATTEND Family Medicine
DX: I99.8 Other disorder of circulatory system (principal); I70.0 Atherosclerosis of aorta; I70.8 Atherosclerosis of other arteries; Z95.0 Presence of cardiac pacemaker
CPT/HCPCS: 71275; Q9967

== ENCOUNTER 2016-06-26 11:06 | Inpatient (IN) | payer OTHER ==
--- NOTE | 2016-06-26 11:39 | EDPHY ---
H & P Stated Complaint: Noticed discoloration and slight swelling RLE;no injury Time Seen by Provider: 06/26/16 11:19 HPI/ROS: CHIEF COMPLAINT: Right lower extremity discoloration HISTORY OF PRESENT ILLNESS: 75-year-old female medical history significant for atrial fibrillation, peripheral vascular disease, diastolic heart failure, woke this morning with new right pretibial erythema and violaceous discoloration extending proximally. No pain. Distally states that her color appears improved versus her baseline dusky appearance and states that she has a more pink appearance. No pain with dorsiflexion or plantar flexion of the foot.No trauma. No chest pain. PRIMARY CARE PROVIDER: Dr. Mohamud Franco REVIEW OF SYSTEMS: A ten point review of systems was performed and is negative with the exception of the items mentioned in the HPI PAST MEDICAL & SURGICAL HISTORY: history of cellulitis. AFib. At diastolic heart failure. Pacemaker. On Eliquis. SOCIAL HISTORY:nonsmoker PHYSICAL EXAM (Prior to examination, patient consented to physical exam, hands were washed and my usual and customary physical exam procedures followed) 1) GENERAL: Well-developed, well-nourished, alert and oriented. Appears to be in no acute distress. smiling, answering questions appropriately 2) HEAD: Normocephalic, atraumatic 3) HEENT: Pupils equal, round, reactive to light bilaterally. Sclera anicteric. 4) NECK: Full range of motion, no meningeal signs. 5) LUNGS: Clear auscultation bilaterally, no wheezes, no rhonchi, no retractions. 6) HEART: Regular rate and rhythm, no murmur, no heave, no gallop. 7) ABDOMEN: No guarding, no rebound, no focal tenderness, negative McBurney's, negative Underwood's, negative Rovsing's, negative peritoneal sign, 8) MUSCULOSKELETAL: Right lower extremity: Right pretibial erythema and violaceous discoloration extending from her right ankle proximally. Increased warmth versus surrounding tissue. Soft compartments. Moving all extremities, no focal areas of tenderness, no obvious trauma. No peripheral edema or discoloration. 9) BACK: No CVA tenderness. 10) SKIN: No rash, no petechiae. 11) Psychiatric: Patient is oriented X 3, there is no agitation. DIFFERENTIAL DIAGNOSIS: In no particular order including but not limited to DVT , arterial occlusion, cellulitis, compartment syndrome, necrotizing fasciitis - Personal History Current Tetanus Diphtheria and Acellular Pertussis (TDAP): Yes Tetanus Vaccine Date: unknown - Medical/Surgical History Hx Asthma: No Hx Chronic Respiratory Disease: No Hx Diabetes: No Hx Cardiac Disease: Yes Hx Renal Disease: No Hx Cirrhosis: No Hx Alcoholism: No Hx HIV/AIDS: No Hx Splenectomy or Spleen Trauma: No Other PMH: CHF, L total knee, R total hip, HTN, Bradycardia, Pacer, Arthritis, Carpal Tunnel Release, Neuropathy back surgeries, colon resection, poor peripheral circulation - Social History Smoking Status: Former smoker Constitutional: Initial Vital Signs Temperature (C) 36.9 C 06/26/16 11:10 Heart Rate 76 06/26/16 11:10 Respiratory Rate 18 06/26/16 11:10 Blood Pressure 109/69 06/26/16 11:10 O2 Sat (%) 90 L 06/26/16 11:10 O2 Delivery Mode Room Air Allergies/Adverse Reactions: morphine [Morphine] Allergy (Mild, Verified 06/26/16 11:22) VOMITTING Home Medications: Medication Instructions Recorded DULoxetine [Cymbalta 30 MG (*)] 30 mg PO HS 04/01/15 Diazepam [Valium 5 MG (*)] 5 mg PO HS PRN 04/01/15 Irbesartan [Avapro 300 mg] 300 mg PO DAILY@18 04/01/15 Gabapentin [Neurontin 300 MG (*)] 300 mg PO Q8 02/12/16 Metoprolol Tartrate 50 mg PO BID 04/21/16 Multivitamins [Multivitamin (*)] 1 each PO DAILY 04/21/16 Vit A/Vit C/Vit E/Zinc/Copper 1 each PO DAILY 04/21/16 [Preservision Areds Softgel] Apixaban [Eliquis] 5 mg PO BID #60 tab 04/26/16 Potassium Cl [Klor-Con 10 meq (RX)] 10 meq PO DAILY #30 tab 04/26/16 Albuterol [Proventil Inhaler HFA 1 - 2 puffs IH Q4H PRN 06/26/16 (*)] Ferrous Sulfate [Ferrous Sulf 325 325 mg PO DAILY@18 06/26/16 MG (*)] Furosemide [Lasix 20 MG (*)] 20 mg PO DAILY@1600 06/26/16 Furosemide [Lasix 20 MG (*)] 40 mg PO DAILY 06/26/16 Herbals/Supplements -Info Only 1 ea PO DAILY 06/26/16 Hyoscyamine Sulfate [Levsin, 0.125 mg PO TID 06/26/16 Hyomax-Sl 0.125 mg (*)] amLODIPine BESYLATE [Norvasc 10 mg 5 mg PO DAILY 06/26/16 (*)] Medical Decision Making - Diagnostics Imaging: Ultrasound is negative for DVT. Positive inguihnal adenopathy ED Course/Re-evaluation: 1:59 p.m.: Phone consultation with hospitalist Avis, admit to Dr. Christi De Souza for cellulitis right pretibial region. Patient also seen and examined by Dr. All Holt. Patient has evidence of cellulitis of the right pretibial region plan will be admission. No evidence of deep space infection, abscess or DVT. - Data Points Laboratory Results: Laboratory Results 06/26/16 12:06 06/26/16 12:06 06/26/16 06/26/16 06/26/16 12:06 12:06 12:06 WBC RBC Hgb Hct MCV MCH MCHC RDW Plt Count MPV Neut % (Auto) Lymph % (Auto) Ashley % (Auto) Eos % (Auto) Baso % (Auto) Nucleat RBC Rel Count Absolute Neuts (auto) Absolute Lymphs (auto) Absolute Monos (auto) Absolute Eos (auto) Absolute Basos (auto) Absolute Nucleated RBC Immature Gran % Immature Gran # PT 21.5 SEC H SEC (12.0-15.0) INR 1.86 H (0.83-1.16) APTT 40.5 SEC H SEC (23.0-38.0) Sodium 129 mEq/L L mEq/L (134-144) Potassium 4.4 mEq/L mEq/L (3.5-5.2) Chloride 91 mEq/L L mEq/L (97-110) Carbon Dioxide 27 mEq/l mEq/l (22-31) Anion Gap 11 mEq/L mEq/L (8-16) BUN 30 mg/dL H mg/dL (7-23) Creatinine 1.1 mg/dL H mg/dL (0.6-1.0) Estimated GFR 48 Glucose 101 mg/dL H mg/dL (70-100) Calcium 9.3 mg/dL mg/dL (8.5-10.4) C-Reactive Protein 67.4 mg/L H mg/L (<10.0) 06/26/16 12:06 WBC 13.81 10^3/uL H 10^3/uL (3.80-9.50) RBC 3.78 10^6/uL L 10^6/uL (4.18-5.33) Hgb 11.0 g/dL L g/dL (12.6-16.3) Hct 33.1 % L % (38.0-47.0) MCV 87.6 fL fL (81.5-99.8) MCH 29.1 pg pg (27.9-34.1) MCHC 33.2 g/dL g/dL (32.4-36.7) RDW 14.4 % % (11.5-15.2) Plt Count 208 10^3/uL 10^3/uL (150-400) MPV 9.5 fL fL (8.7-11.7) Neut % (Auto) 90.3 % H % (39.3-74.2) Lymph % (Auto) 3.9 % L % (15.0-45.0) Ashley % (Auto) 5.0 % % (4.5-13.0) Eos % (Auto) 0.0 % L % (0.6-7.6) Baso % (Auto) 0.3 % % (0.3-1.7) Nucleat RBC Rel Count 0.0 % % (0.0-0.2) Absolute Neuts (auto) 12.47 10^3/uL H 10^3/uL (1.70-6.50) Absolute Lymphs (auto) 0.54 10^3/uL L 10^3/uL (1.00-3.00) Absolute Monos (auto) 0.69 10^3/uL 10^3/uL (0.30-0.80) Absolute Eos (auto) 0.00 10^3/uL L 10^3/uL (0.03-0.40) Absolute Basos (auto) 0.04 10^3/uL 10^3/uL (0.02-0.10) Absolute Nucleated RBC 0.00 10^3/uL 10^3/uL (0-0.01) Immature Gran % 0.5 % % (0.0-1.1) Immature Gran # 0.07 10^3/uL 10^3/uL (0.00-0.10) PT INR APTT Sodium Potassium Chloride Carbon Dioxide Anion Gap BUN Creatinine Estimated GFR Glucose Calcium C-Reactive Protein Medications Given: Discontinued Medications Vancomycin/Sodium Chloride (Vancomycin 1 Gm (Premix)) 250 mls @ 250 mls/hr IV EDNOW ONE PRN Reason: Protocol Stop: 06/26/16 14:56 Last Admin: 06/26/16 14:16 Dose: 250 mls Departure - Departure Disposition: [facility] Inpatient Acute Clinical Impression: Right pretibial cellulitis Condition: Fair
[2016-06-26 12:26] LABS: % IMMATURE GRANULYOCYTES 0.5 % (0.0-1.1); ABSOLUTE IMMATURE GRANULOCYTES 0.07 10^3/uL (0.00-0.10); ADD DIFF? NO; ADD MORPH? NO; ADD SCAN? NO; ATYPICAL LYMPHOCYTE FLAG 0 (0-99); FRAGMENT RBC FLAG 0 (0-99); HEMATOCRIT 33.1 % (38.0-47.0); LEFT SHIFT FLG 10 (0-99); LIPEMIA HEMOLYSIS FLAG 80 (0-99); MEAN CELL HEMOGLOBIN 29.1 pg (27.9-34.1); MEAN CELL HEMOGLOBIN CONCENTR. 33.2 g/dL (32.4-36.7); MEAN CELL VOLUME 87.6 fL (81.5-99.8); MEAN PLATELET VOLUME 9.5 fL (8.7-11.7); PLATELET CLUMPS FLAG 0 (0-99); PLATELET COUNT 208 10^3/uL (150-400); RED BLOOD CELL COUNT 3.78 10^6/uL (4.18-5.33); RED CELL DISTRIBUTION WIDTH 14.4 % (11.5-15.2)
[2016-06-26 12:35] LABS: APTT 40.5 SEC (23.0-38.0); INR 1.86 (0.83-1.16); PROTIME(PATIENT) 21.5 SEC (12.0-15.0)
[2016-06-26 12:45] LABS: ANION GAP 11 mEq/L (8-16); CALCIUM 9.3 mg/dL (8.5-10.4); CARBON DIOXIDE 27 mEq/l (22-31); CHLORIDE 91 mEq/L (97-110); CREATININE 1.1 mg/dL (0.6-1.0); GLOMERULAR FILTRATION RATE 48; GLUCOSE 101 mg/dL (70-100); POTASSIUM 4.4 mEq/L (3.5-5.2); SODIUM 129 mEq/L (134-144)
[2016-06-26] MEDS ORDERED: VANCOMYCIN HCL/NORMAL SALINE 250 ML IV ONE (13:57)
[2016-06-26] MEDS ORDERED: ONDANSETRON DISINTEGRATING 4 MG TAB PO PRN (15:12)
[2016-06-26] MEDS ORDERED: ONDANSETRON 4 MG/2 ML VIAL IVP PRN (15:12)
[2016-06-26] MEDS ORDERED: DIAZEPAM 5 MG TAB PO PRN (15:14)
[2016-06-26] MEDS ORDERED: ALBUTEROL 60 PUFFS/8 GM MDI IH PRN (15:14)
[2016-06-26] MEDS ORDERED: FUROSEMIDE 20 MG TAB PO SCH (16:00)
[2016-06-26] MEDS: ACETAMINOPHEN 325 MG TAB PO PRN ×2 (16:06→21:31)
[2016-06-26] MEDS: HYOSCYAMINE SULFATE 0.125 MG TAB PO SCH ×2 (16:07→21:31)
[2016-06-26 16:11] LABS: HEMATOCRIT 33.7 % (38.0-47.0)
--- NOTE | 2016-06-26 16:33 | GHP ---
[f rep st] HISTORY AND PHYSICAL DATE OF ADMISSION: 06/26/2016 CHIEF COMPLAINT: Right lower extremity erythema and swelling. HPI: The patient is a 75-year-old with multiple medical issues, including atrial fibrillation, sick sinus syndrome, status post pacemaker placement, and a history of diastolic heart failure. She als o has chronic pulmonary hypertension with PA pressures around 60-70. She comes in after noting incr easing erythema in her right lower extremity in the middle of the night. Apparently yesterday, arou nd 4:30, her daughter noted that she was having some chills, but no fever. In the middle of the nig ht she got up to go to the bathroom, and she felt unsteady on her feet. She was shaking and cold, a nd this morning noted that her right lower extremity was red and swollen, similar to her previous ep isode of cellulitis on the left leg. She really denies any significant pain. She does not feel sic k currently. Her chills have resolved. She has never had a fever. She denies any chest pain, shor tness of breath, nausea, vomiting, diarrhea. She has chronic ulcerations of her fingers and toes du e to what looks like poor circulation. She has chronic purple discoloration to her fingers, which a ppears unchanged. REVIEW OF SYSTEMS: A 10-point review of systems is done and is negative, except as stated in HPI. PAST MEDICAL HISTORY: 1. History of diastolic congestive heart failure, followed by Dr. Stewart at [facility]. 2. Hypertension. 3. History of atrial fibrillation, on anticoagulation with Eliquis. 4. Sick sinus syndrome, status post pacemaker placement. 5. SIADH with chronic hyponatremia, generally sodiums are around 129-130. 6. 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 7. Anxiety. 8. Pulmonary hypertension. PA systolic pressure at 68. 9. Chronic obstructive pulmonary disease with a 25-50 pack-year history of tobacco use. She quit i n 2002. 10. Chronic anemia. 11. Peripheral vascular disease. 12. Osteoarthritis. 13. Valvular heart disease including severe TR, moderate MS and MR, mild AI and . PAST SURGICAL HISTORY: 1. Right total hip replacement. 2. Lumbar fusion. 3. Ovarian surgery. ALLERGIES: Morphine. MEDICATIONS: Amlodipine, Avapro 300 mg daily, potassium 10 mEq daily, multivitamin, metoprolol 50 t wice daily, Levsin as needed, Neurontin 300 every 8 hours, Lasix 40 mg in the morning 20 mg at night , iron, Valium, Cymbalta 30 mg daily, Eliquis 5 twice daily, and albuterol as needed. FAMILY HISTORY: Parents are . SOCIAL HISTORY: She is . She currently lives with 2 of her daughters in [place]. She amb ulates with a walker, but is independent and still drives. She drinks 5-7 drinks per week, and quit smoking in 2002. She smoked for 40-50 years, anywhere from a half a pack to a pack a day. PHYSICAL EXAM: VITAL SIGNS: Temperature is 37.7, with a heart rate of 78, blood pressure 110/69, r espirations 18, she is 90% on room air. GENERAL: She is a 75-year-old woman in no obvious distress . She is alert, but has some poor short-term memory. HEENT: N/C, atraumatic. Pupils are equal. Extraocular movements intact. Sclerae anicteric. Conjunctiva is nonerythematous. No exudates. Or opharynx clear. NECK: Supple. No adenopathy cervically. No carotid bruits. HEART: Regular with a systolic murmur. LUNGS: Clear with diminished breath sounds bilaterally. No wheeze, rhonchi, o r rales. ABDOMEN: No obvious abdominal bruit, soft, nontender. Normal bowel sounds. EXTREMITIES: Bilateral edema, right greater than left. Right lower extremity has a gianluca red appearance from j ust above her ankle to below her knee, on her anterior marte, with some petechial changes on the fahad phery. Pulses are 2+ dorsal pedal bilaterally. She does have poor circulation in her toes with an ulceration on her right big toe. Fingers are purplish past the DIP joints, again, with some small u lcerations noted. NEUROLOGIC: She is moving all 4 extremities. Her speech is fluent. MUSCULOSKEL ETAL: No obvious joint effusions or deformities. Good range of motion of her knees, ankles. LABORATORY DATA: CBC shows a white count of 13.8, hemoglobin 11, with a platelet count of 208. INR is elevated at 1.86. Electrolytes show sodium 129, BUN 30, with creatinine 1.1. Blood cultures ar e pending. Lower extremity Doppler shows no evidence of DVT in the right lower extremity, but right inguinal ad enopathy noted. ASSESSMENT AND PLAN: A 75-year-old woman presents with acute onset right lower extremity erythema a nd swelling, associated with leukocytosis, mild renal insufficiency, consistent with sepsis. 1. Right lower extremity cellulitis. No evidence of abscess. No previous history of MRSA. No ope n sores, although she has an ulceration on her big toe on the right foot. There is no streaking fro m that site, and erythema really starts proximal to her ankle. The plan will be start her on Ancef 1 g every 8 hours. Monitor her for the next 24-48 hours for improvement. If she does not improve w ith therapy, could consider infectious disease consult. If she does continue to improve, consider c hanging her to Augmentin prior to discharge with followup with [facility]; they have seen her [facility] ore for her cellulitis.. 2. Acute renal insufficiency with elevated creatinine and BUN. We will give her some gentle hydrat ion overnight of just 500 cc normal saline. Repeat her creatinine in the a.m. 3. History of acute diastolic congestive heart failure. Her weight has been stable. She does not appear to be fluid overloaded. We will monitor daily weights. 4. Hypertension. Currently, her blood pressures are relatively low. We will hold her amlodipine u ntil her blood pressure improves. Continue her irbesartan and metoprolol. 5. Hyponatremia with a history of SIADH, likely at baseline, but we will continue to monitor this c losely while she is in the hospital. Consider fluid restriction if it does not stabilize or improve . 6. Chronic purple discoloration of her fingers and toes with relatively good peripheral pulses othe rwise. I wonder if she has some vasculitis contributing to this. She has been evaluated extensivel y by her primary care provider. I will get a CRP and ESR. If these are significantly abnormal, cou ld recommend followup with Rheumatology as an outpatient. 7. Anemia, chronic. Appears to be at baseline. We will continue to follow. 8. Sick sinus syndrome, status post pacemaker placement. 9. Atrial fibrillation, on chronic anticoagulation with Eliquis, with a slightly elevated INR consi stent with this. We will continue her usual medications. 10. History of chronic obstructive pulmonary disease. The patient has quit smoking. We will tonie nue her pulmonary medications, and monitor oxygen needs while in the hospital. 11. Osteoarthritis. 12. Valvular heart disease. 13. Peripheral vascular disease. 14. Deep vein thrombosis prophylaxis. The patient is on anticoagulation with Eliquis. /[id number]/MODL
[2016-06-26] MEDS ORDERED: IRBESARTAN 150 MG TAB PO SCH (18:00)
[2016-06-26] MEDS ORDERED: NON-FORMULARY NEW DRUG (Irbesartan [Avapro 300 Mg] 300 MG) PO SCH (18:00)
[2016-06-26] MEDS: APIXABAN 5 MG TAB PO SCH (21:31)
[2016-06-26] MEDS: GABAPENTIN 300 MG CAP PO SCH (21:31)
[2016-06-26] MEDS: METOPROLOL TARTRATE 50 MG TAB PO SCH (21:43)
[2016-06-26] MEDS: DULoxetine 30 MG CAP PO SCH (21:45)
[2016-06-26] MEDS: FERROUS SULFATE 325 MG TAB PO SCH (21:50)
[2016-06-27] MEDS: ACETAMINOPHEN 325 MG TAB PO PRN (05:57)
[2016-06-27] MEDS: GABAPENTIN 300 MG CAP PO SCH ×3 (05:57→21:50)
[2016-06-27 08:18] LABS: % IMMATURE GRANULYOCYTES 0.4 % (0.0-1.1); ABSOLUTE IMMATURE GRANULOCYTES 0.04 10^3/uL (0.00-0.10); ADD DIFF? NO; ADD MORPH? NO; ADD SCAN? NO; ATYPICAL LYMPHOCYTE FLAG 0 (0-99); FRAGMENT RBC FLAG 0 (0-99); HEMOGLOBIN 9.8 g/dL (12.6-16.3); LEFT SHIFT FLG 0 (0-99); LIPEMIA HEMOLYSIS FLAG 90 (0-99); MEAN CELL HEMOGLOBIN 29.9 pg (27.9-34.1); MEAN CELL HEMOGLOBIN CONCENTR. 33.8 g/dL (32.4-36.7); MEAN CELL VOLUME 88.4 fL (81.5-99.8); MEAN PLATELET VOLUME 8.9 fL (8.7-11.7); PLATELET CLUMPS FLAG 0 (0-99); PLATELET COUNT 133 10^3/uL (150-400); RED BLOOD CELL COUNT 3.28 10^6/uL (4.18-5.33); RED CELL DISTRIBUTION WIDTH 14.4 % (11.5-15.2)
[2016-06-27 08:52] LABS: ANION GAP 10 mEq/L (8-16); CALCIUM 8.9 mg/dL (8.5-10.4); CARBON DIOXIDE 24 mEq/l (22-31); CHLORIDE 91 mEq/L (97-110); CREATININE 1.1 mg/dL (0.6-1.0); GLOMERULAR FILTRATION RATE 48; GLUCOSE 90 mg/dL (70-100); POTASSIUM 3.8 mEq/L (3.5-5.2); SODIUM 125 mEq/L (134-144)
[2016-06-27] MEDS ORDERED: NON-FORMULARY NEW DRUG (Vit A/Vit C/Vit E/Zinc/Copper [Preservision Areds Softgel] 1 EACH) PO SCH (09:00)
[2016-06-27] MEDS ORDERED: NS 1,000 ML IV SCH (09:00)
[2016-06-27] MEDS ORDERED: POTASSIUM CL 10 MEQ TAB PO SCH (09:00)
[2016-06-27] MEDS ORDERED: FUROSEMIDE 20 MG TAB PO SCH (09:00)
[2016-06-27] MEDS: PRESERVISION AREDS2 FORMULA EYE VIT 1 EACH PO SCH (09:06)
[2016-06-27] MEDS: HYOSCYAMINE SULFATE 0.125 MG TAB PO SCH ×3 (09:06→21:50)
[2016-06-27] MEDS: METOPROLOL TARTRATE 50 MG TAB PO SCH ×2 (09:07→20:36)
[2016-06-27] MEDS: MULTIVITAMINS 1 EACH TAB PO SCH (09:07)
[2016-06-27] MEDS: APIXABAN 5 MG TAB PO SCH ×2 (09:07→20:36)
--- NOTE | 2016-06-27 15:08 | HOSPPROG ---
Hospitalist Progress Note Assessment/Plan: Assessment: 75-year-old female presents with acute sepsis in the setting of right lower extremity cellulitis Plan: 1. Sepsis. Evidenced by fever with a T-max of 39.4degrees, tachycardia with a heart rate of 100, leukocytosis clearly identifiable source of infection notably cellulitis, fulfilling all of sepsis-2 criteria, resulting in autonomic dysregulation in the setting of infection with end-organ disruption notably acute kidney injury -status post IV fluids, continue -continue on IV antibiotics -blood cultures no growth to date 2. Cellulitis. Right lower extremity, responding to IV Ancef, most likely streptococcal or Staph organisms -ultrasound demonstrated no evidence of DVT -continue day 2 of IV antibiotics given that the area has not completely clinically resolved, will reassess tomorrow and consider transition to oral antibiotics at that time -ESR normal, CRP elevated, believe that this is most likely secondary to cellulitis and not vasculitic process 3. Acute kidney injury. Acute, new problem this provider, further workup indicated. Reviewed outside records including historical lab values of serum creatinine level, baseline less than 1, has evidence of ongoing acute kidney injury with a creatinine 1.1 -send urine sodium to determine whether patient remains pre renal -continue IV fluids until above data point has been collected -avoid nonsteroidal anti-inflammatory medications 4. Hyponatremia. Acute on chronic, most likely secondary to renal hypoperfusion and hypovolemia in the setting of above -if urine sodium level 10 or less, will continue IV fluids and not place patient on a fluid restriction 5. Chronic diastolic congestive heart failure. No evidence of acute exacerbation, monitor closely for evidence of volume overload in the setting of above -hold ARB -hold Lasix Diet. Regular diet Prophylaxis. High risk patient, heparin subcu Code. Full Disposition. Anticipated discharge is 06/28, pending clinical improvement of cellulitis and acute kidney injury as outlined above. The patient remains high risk of morbidity, high medical complexity patient secondary to the conditions as outlined above. Subjective: She reports that she is eating and drinking well Objective: Vital Signs Temp Pulse Resp BP Pulse Ox 36.4 C 76 116 H 117/73 99 06/27/16 08:20 06/27/16 08:20 06/27/16 08:20 06/27/16 08:20 06/27/16 08:20 Laboratory Results 06/27/16 08:05 06/27/16 08:05 06/26/16 06/27/16 06/28/16 05:59 05:59 05:59 Intake Total 900 Balance 900 PT 21.5 SEC (12.0-15.0) H 06/26/16 12:06 INR 1.86 (0.83-1.16) H 06/26/16 12:06 - Physical Exam Constitutional: no apparent distress, appears nourished, not in pain Cardiovascular: regular rate and rhythym, no murmur, rub, or gallop Respiratory: no respiratory distress, no rales or rhonchi, clear to auscultation Gastrointestinal: normoactive bowel sounds, soft, non-tender abdomen, no palpable masses Skin: other (Nonblanching, petechial lesions on the anterior surface of her right lower extremity with fading erythema, no induration, no tenderness) Neurologic: AAOx3, sensation intact bilaterally Psychiatric: interacting appropriately, not anxious, not encephalopathic, thought process linear ICD10 Worksheet Patient Problems: Problems Problem Status Onset Osteoarthritis of right hip Acute Left lower lobe pneumonia Acute Cellulitis of leg, right Acute Cellulitis Acute Hyponatremia Acute Congestive heart failure Acute Chronic Disease Mgmt/Transitional Care Acute
[2016-06-27] MEDS: FERROUS SULFATE 325 MG TAB PO SCH (18:36)
[2016-06-27] MEDS: DULoxetine 30 MG CAP PO SCH (20:35)
[2016-06-28] MEDS: ACETAMINOPHEN 325 MG TAB PO PRN (00:05)
[2016-06-28 03:38] VITALS: PULSE 74; RESP 18
[2016-06-28] MEDS: GABAPENTIN 300 MG CAP PO SCH ×2 (04:40→16:20)
[2016-06-28 04:56] LABS: % IMMATURE GRANULYOCYTES 0.4 % (0.0-1.1); ABSOLUTE IMMATURE GRANULOCYTES 0.03 10^3/uL (0.00-0.10); ADD DIFF? NO; ADD MORPH? NO; ADD SCAN? NO; ATYPICAL LYMPHOCYTE FLAG 0 (0-99); FRAGMENT RBC FLAG 0 (0-99); HEMATOCRIT 27.6 % (38.0-47.0); HEMOGLOBIN 9.5 g/dL (12.6-16.3); LEFT SHIFT FLG 0 (0-99); LIPEMIA HEMOLYSIS FLAG 90 (0-99); MEAN CELL HEMOGLOBIN 30.5 pg (27.9-34.1); MEAN CELL HEMOGLOBIN CONCENTR. 34.4 g/dL (32.4-36.7); MEAN CELL VOLUME 88.7 fL (81.5-99.8); MEAN PLATELET VOLUME 9.2 fL (8.7-11.7); PLATELET CLUMPS FLAG 10 (0-99); PLATELET COUNT 131 10^3/uL (150-400); RED BLOOD CELL COUNT 3.11 10^6/uL (4.18-5.33); RED CELL DISTRIBUTION WIDTH 14.1 % (11.5-15.2)
[2016-06-28 05:28] LABS: ANION GAP 8 mEq/L (8-16); CALCIUM 8.3 mg/dL (8.5-10.4); CARBON DIOXIDE 22 mEq/l (22-31); CHLORIDE 95 mEq/L (97-110); CREATININE 0.9 mg/dL (0.6-1.0); GLOMERULAR FILTRATION RATE > 60; GLUCOSE 91 mg/dL (70-100); POTASSIUM 4.2 mEq/L (3.5-5.2); SODIUM 125 mEq/L (134-144)
[2016-06-28 07:54] VITALS: BP 122/78; TEMP 98.3; O2SAT 91
[2016-06-28] MEDS: METOPROLOL TARTRATE 50 MG TAB PO SCH (08:02)
[2016-06-28] MEDS: HYOSCYAMINE SULFATE 0.125 MG TAB PO SCH ×2 (08:02→16:20)
[2016-06-28] MEDS: MULTIVITAMINS 1 EACH TAB PO SCH (08:02)
[2016-06-28] MEDS: PRESERVISION AREDS2 FORMULA EYE VIT 1 EACH PO SCH (08:03)
[2016-06-28] MEDS: APIXABAN 5 MG TAB PO SCH (08:03)
--- NOTE | 2016-06-28 13:04 | PDDCSUM ---
Discharge Summary Discharge Summary: DISCHARGE SUMMARY FOLLOW-UP ITEMS: Repeat serum sodium, urine sodium, urine Osmo DATE OF ADMISSION: 06/26/2016 DATE OF DISCHARGE: 06/28/2016 DISCHARGE DIAGNOSES: 1. Sepsis 2. Right lower extremity cellulitis 3. Acute kidney injury 4. Acute on chronic hypo natremia 5. Chronic diastolic congestive heart failure CONSULTATIONS: None PROCEDURES / IMAGING: Ultrasound of the lower extremity demonstrated no evidence of DVT CHIEF COMPLAINT: Lower extremity redness and swelling SUBJECTIVE: Redness and swelling improving, no pain PHYSICAL EXAM ON DISCHARGE: Systolic blood pressure is 1/20, heart rate 70, afebrile overnight, satting well on room air, affected area has fading erythema, some nonblanching petechiae , has receded from the margins, full range of motion of the right ankle and right knee without any pain, no inspiratory crackles or expiratory wheezes on lung exam LABS ON DISCHARGE: Serum sodium 125, potassium 4.2, creatinine 0.9, white blood count 7300, hemoglobin 9.5 HOSPITAL COURSE BY PROBLEM: 1. Sepsis. Evidenced by fever, tachycardia, leukocytosis, clearly identifiable source of infection notably cellulitis, resulting in autonomic dysregulation in the setting of infection with end-organ disruption notably acute kidney injury. This fulfills all sepsis-2 criteria, adherent to the International consensus definition sepsis-2. She is status post IV fluids and empiric IV antibiotics 2. Right lower extremity cellulitis. No evidence of visible skin break, had significant erythema and swelling on presentation, responded well to IV Ancef and ultrasound demonstrated no evidence of DVT. She will be transitioned to Keflex for 7 subsequent days, outpatient follow-up through her primary care office. 3. Acute kidney injury. Secondary to hypovolemia with peak creatinine level 1.1 , responded to IV fluids. Her diuretic and ARB were held while she was being actively treated. These can be re-initiated tomorrow. 4. Acute on chronic hyponatremia. Most likely secondary to renal hypoperfusion and hypovolemia in the setting of above. Her urine sodium level was 10 and she received IV normal saline. Her serum sodium level has plateaued at 125 and I recommend that she have an outpatient creatinine BUN and lytes as well as urine sodium and urine nausea mood lab values performed in several days to demonstrate stability. She has been placed on 1.5 L fluid restriction. Her diuretic and ARB will be re-initiated tomorrow. 5. Chronic diastolic congestive heart failure. No evidence of acute exacerbation, her discharge weight is up several kg from her presenting weight, recommend monitoring in the outpatient setting to ensure she does not develop CHF. DISCHARGE MEDICATIONS: Please see official discharge medication reconciliation sheet in chart , Keflex 500 mg 4 times daily for 7 subsequent days. DISCHARGE INSTRUCTIONS: Please follow up within a week with either Dr. Franco or Dr. Christian, with labs prior to that appointment. TIME SPENT: Greater than 30 minutes were spent on direct patient care, as well as discharge planning and preparation.
== END 2016-06-28 16:36 | disposition home or self-care (01) | DRG 872 ==
LOC: F1N 15:12
PROVIDERS: ADMIT Internal Medicine; ATTEND Internal Medicine
DX: A41.9 Sepsis, unspecified organism (principal); L03.115 Cellulitis of right lower limb; N17.9 Acute kidney failure, unspecified; E22.2 Syndrome of inappropriate secretion of antidiuretic hormone; I50.32 Chronic diastolic (congestive) heart failure; I10 Essential (primary) hypertension; I48.91 Unspecified atrial fibrillation; J44.9 Chronic obstructive pulmonary disease, unspecified; I73.9 Peripheral vascular disease, unspecified; Z95.0 Presence of cardiac pacemaker; Z87.891 Personal history of nicotine dependence
CPT/HCPCS: 96365; 97116-GP; 97161-GP; G8978-GP-CI; G8979-GP-CI; J0690; J3370

== ENCOUNTER → 2016-08-29 | Outpatient (CLI) | payer OTHER | LOC: BHFA 13:45 | PROVIDERS: ATTEND Internal Medicine Cardiovascular Disease | DX: I50.33 Acute on chronic diastolic (congestive) heart failure (principal); I48.91 Unspecified atrial fibrillation; R06.02 Shortness of breath; R60.9 Edema, unspecified ==

== ENCOUNTER → 2017-01-27 | Outpatient (CLI) | payer OTHER | LOC: BRMIMAGING 13:51 | PROVIDERS: ATTEND Internal Medicine Rheumatology | DX: I73.89 Other specified peripheral vascular diseases (principal); M19.041 Primary osteoarthritis, right hand; M19.042 Primary osteoarthritis, left hand | CPT/HCPCS: 73130-PO ==

== ENCOUNTER → 2017-05-26 | Outpatient (CLI) | payer OTHER | LOC: BHCLAF 10:00 | PROVIDERS: ATTEND Internal Medicine Cardiovascular Disease | DX: I48.91 Unspecified atrial fibrillation (principal) | CPT/HCPCS: 93306-PO ==

== ENCOUNTER → 2017-10-23 | Outpatient (CLI) | payer OTHER | LOC: FIMAGING 15:02 | PROVIDERS: ATTEND Family Medicine | DX: R60.0 Localized edema (principal); R22.42 Localized swelling, mass and lump, left lower limb ==

== ENCOUNTER → 2018-06-05 | Outpatient (CLI) | payer OTHER | LOC: BHCLAF 14:45 | PROVIDERS: ATTEND Internal Medicine Cardiovascular Disease | DX: I50.9 Heart failure, unspecified (principal); I27.21 Secondary pulmonary arterial hypertension | CPT/HCPCS: 93306-PO ==

== ENCOUNTER 2018-07-04 09:08 | Day surgery (SDC) | payer OTHER ==
[2018-07-04] MEDS ORDERED: DIAZEPAM 5 MG TAB PO ONE (09:10)
[2018-07-04] MEDS ORDERED: NS 1,000 ML IV ONE (09:10)
[2018-07-04] MEDS ORDERED: diphenhydrAMINE 25 MG CAP PO ONE (09:10)
[2018-07-04] MEDS ORDERED: FAMOTIDINE 20 MG TAB PO ONE (09:10)
[2018-07-04] MEDS ORDERED: ASPIRIN EC 325 MG TAB PO ONE (09:10)
[2018-07-04 09:51] LABS: PLATELET COUNT 277 10^3/uL (150-400)
[2018-07-04] MEDS ORDERED: MIDAZOLAM 2 MG/2 ML VIAL ONE (09:53)
[2018-07-04] MEDS ORDERED: LIDOCAINE 1% 300 MG/30 ML SDV ONE (09:53)
[2018-07-04] MEDS ORDERED: fentaNYL 100 MCG/2 ML INJ ONE (09:53)
[2018-07-04] MEDS ORDERED: IOPAMIDOL (ISOVUE-370) 150 ML BTL IV ONE (09:54)
[2018-07-04 09:58] LABS: INR 1.08 (0.83-1.16); PROTIME(PATIENT) 13.6 SEC (12.0-15.0)
--- NOTE | 2018-07-04 11:59 | CPIP ---
[f rep st] INVASIVE CARDIAC PROCEDURE DATE OF PROCEDURE: 07/04/2018 INDICATION FOR PROCEDURE: Shortness of breath, heart failure. PROCEDURE: 1. Nonselective right groin sheathogram. 2. 7-[place] sheath in the right common femoral vein. 3. Right heart catheterization using a Colton-Earlene catheter. 4. Bilateral selective coronary angiography. 5. Left heart catheterization. 6. Left ventriculogram. HISTORY: Briefly, this is a 77-year-old female with history of worsening fluid retention heart failu re-like symptoms. The patient was consented for right and left heart catheterization for further gena luation and hemodynamic status. DESCRIPTION OF PROCEDURE: After informed consent, the patient was brought to [facility] where the right rd in was prepped and draped in sterile fashion. Using lidocaine, a short 6-[place] sheath in the right c ommon femoral artery verified angiographically. Through this, a 7-[place] sheath in the right common femoral vein. Colton-Earlene catheter was then advanced. Wedge pressure was mean of 22 with A-wave of 24 with a V-wave o f 30. PA pressure was measured to be 56 with a diastolic 23, mean of 36. RV pressure was measured a t 58 with a diastolic 6, end of 14. RA pressure was mean of 10 , A-wave 13, V-wave 13. Cardiac outp ut was measured by Susan by 3.5 with index of 1.9. AO sat was 94%. PA sat was 62%. Colton-Earlene cathet er was removed. A JL4 catheter was then advanced to left coronary artery. Images of the left coronary artery showed normal left main. Left circumflex artery gave off a tiny marginal 1 in its midportion, then followed by a much larger marginal 2 artery. The AV groove circumflex had mild plaque disease. The LAD, its elf, was a long vessel, which wrapped around the apex. The LAD gave off multiple diagonal arteries. There was a large proximal diagonal artery, which was healthy and free of disease. After these imag es were obtained, the JL4 catheter was removed. A JR4 catheter advanced to the right coronary artery. Images of the right coronary artery revealed no rmal ostial RCA, normal proximal and distal RCA. The RPD and RPLS appeared to be healthy and free of disease. After these images were obtained, the JR4 catheter was removed. The pigtail catheter was advanced to the left ventricle. EDP is approximately 15 mmHg. Left ventric ulogram in the VIRGEN projection showed an EF of 65% with no wall motion abnormality. No pullback gradi ent between the LV and the aorta. The pigtail catheter was removed over an 0.035 wire. Right groin w as closed with 6-C[place]ican Angio-Seal. 7-[place] sheath was closed with manual pressure. Patient tolera tameka the procedure well with no complications. IMPRESSION: 1. Normal coronary arteries. 2. Reduced cardiac output. 3. Moderately severe pulmonary hypertension. PLAN: Patient has evidence of normal ejection fraction with low cardiac output, as well as moderatel y severe pulmonary hypertension. She will continue with diuretics as scheduled and will follow up [facility] Dr. Stewart as an outpatient. /[id number]/MODL
[2018-07-04] MEDS ORDERED: ATROPINE SULFATE 1 MG/10 ML SYR IVP PRN (12:10)
[2018-07-04] MEDS ORDERED: ONDANSETRON 4 MG/2 ML VIAL IVP PRN (12:10)
[2018-07-04] MEDS ORDERED: NITROGLYCERIN 0.4 MG BTL SL PRN (12:10)
--- NOTE | 2018-07-04 12:12 | PDPROPOC ---
Sedation Plan of Care Sedation Plan of Care: mental status noted, patient educated of risks, benefits , alternatives, patient can tolerate sedation ASA Classification: ASA 3 Planned drugs: fentanyl, midazolam Mallampati Score: Class 3 Mallampati Reference Image: Patient passed 3-3-2 rule?: Yes
--- NOTE | 2018-07-04 12:12 | PDHPUP ---
History & Physical Update H&P update statement: This history and physical update is based on an assessment of the patient which was completed after admission or registration (within 24 hours), but prior to the surgery/procedure. H&P update: H&P reviewed & patient examined, no change in patient's condition since H&P completed
--- NOTE | 2018-07-04 12:13 | PDGENHP ---
History & Physical Chief Complaint: SOB History of Present Illness: HF, diastolic Pertinent Past, Social, Family History: PPM, HF Relevant Physical Exam: decreased BS at bases
[2018-07-04] MEDS ORDERED: ACETAMINOPHEN 325 MG TAB ONE (14:46)
[2018-07-04] MEDS ORDERED: ACETAMINOPHEN 325 MG TAB PO ONE (15:00)
--- NOTE | 2018-07-05 19:33 | CPEKG ---
Test Reason : OPEN Blood Pressure : / mmHG Vent. Rate : 075 BPM Atrial Rate : 000 BPM P-R Int : 199 ms QRS Dur : 184 ms QT Int : 459 ms P-R-T Axes : -23 -76 077 degrees QTc Int : 513 ms Afib/flutter and ventricular-paced rhythm Confirmed by Paulino Mireles ([id number]) on 07/05/2018 7:32:32 PM Referred By: Salvador Damon Confirmed By:Paulino Mireles
== END 2018-07-04 15:51 | disposition home or self-care (01) ==
LOC: FCATH 09:08
PROVIDERS: ATTEND Internal Medicine Cardiovascular Disease
DX: I50.32 Chronic diastolic (congestive) heart failure (principal); I27.20 Pulmonary hypertension, unspecified; R60.9 Edema, unspecified; R06.02 Shortness of breath; I48.2 Chronic atrial fibrillation; J44.9 Chronic obstructive pulmonary disease, unspecified; E87.1 Hypo-osmolality and hyponatremia; G62.9 Polyneuropathy, unspecified; D50.9 Iron deficiency anemia, unspecified; I11.0 Hypertensive heart disease with heart failure; I35.2 Nonrheumatic aortic (valve) stenosis with insufficiency; I49.5 Sick sinus syndrome; I73.9 Peripheral vascular disease, unspecified; Z79.01 Long term (current) use of anticoagulants; Z87.891 Personal history of nicotine dependence; Z96.641 Presence of right artificial hip joint; Z95.0 Presence of cardiac pacemaker; Z98.1 Arthrodesis status
CPT/HCPCS: C1760; J1644; J2250; J3010; Q9967